=== PATIENT | female | born 1985 | race Caucasian/White ===

== ENCOUNTER 2016-09-04 23:23 | Emergency (ER) | payer BC ==
[2016-09-04 23:28] VITALS: RESP 18
[2016-09-04 23:56] LABS: Basophils # (A) 0.1 k/uL (0-0.2); Basophils % (A) 2 %; CH 31.9; CHCM 32.7; Eosinophils # (A) 0.1 k/uL (0-0.7); Eosinophils % (A) 2 %; HCT 42.3 % (34.0-46.0); HDW 2.11; HGB 13.7 gm/dL (11.4-16.0); Luc # (Auto) 0.11; Luc % (Auto) 1; Lymphocytes % (A) 36 %; MCH 31.7 pg (25.0-35.0); MCHC 32.4 g/dL (31.0-37.0); MCV 97.9 fL (80.0-100.0); Mean Platelet Volume 6.9; Monocytes # (A) 0.3 k/uL (0-1.0); Monocytes % (A) 4 %; Neutrophils # (A) 4.7 k/uL (1.3-7.7); Neutrophils % (A) 56 %; RBC 4.32 m/uL (3.80-5.40); RDW 13.3 % (11.5-15.5); WBC 8.3 k/uL (3.8-10.6)
[2016-09-05 00:09] LABS: Partial Thromboplastin Time 24.8 sec (22.0-30.0); Prothrombin Time 10.3 sec (9.0-12.0)
[2016-09-05 00:12] LABS: ALT 28 U/L (9-52); AST 22 U/L (14-36); Alkaline Phosphatase 51 U/L (38-126); Amylase 57 U/L (30-110); Anion Gap 12 mmol/L; Blood Urea Nitrogen 10 mg/dL (7-17); Calcium 9.4 mg/dL (8.4-10.2); Carbon Dioxide 25 mmol/L (22-30); Chloride 105 mmol/L (98-107); Glucose 92 mg/dL (74-99); Non-African American GFR(MDRD) >60 (>60 ml/min/1.73 sqM); Potassium 3.9 mmol/L (3.5-5.1); Sodium 142 mmol/L (137-145); Total Bilirubin 0.4 mg/dL (0.2-1.3); Total Protein 7.4 g/dL (6.3-8.2)
--- NOTE | 2016-09-05 00:16 | ED ---
Chest Pain HPI - General Chief Complaint: Chest Pain Stated Complaint: chest pain Time Seen by Provider: 09/04/16 23:35 Source: patient, RN notes reviewed Mode of arrival: ambulatory Limitations: no limitations - History of Present Illness Initial Comments: This is a 30-year-old female with a history of a cholecystectomy and appendectomy in the past also possible history of ulcers, no history of heart disease who states she had the onset yesterday of chest pain all she was driving home from a day with her children. He states the pain was sudden very severe crampy located across the bottom of her diaphragm and in the mid part of her chest. Lasted about 6 minutes then went away but she had nausea and sweats with it. She states today she felt tired she slept until 3 PM she denies any new chest pain she states she has some vague left upper quadrant discomfort. She denies any fevers chills cough phlegm production dysuria hematuria no history of DVT PE or no long extended trips. She had her gallbladder out she did have gallstones apparently. No sequela so far afterwards. She states the pain seemed to start about 2 hours after taking a Tylenol No. 3 for pain if she had yesterday. She's never had problems with Tylenol 3 before. No other complaints are voiced at this time she does not smoke except occasionally I did advise her to stop altogether no family history of early heart disease. MD Complaint: chest pain - Related Data Home Medications Medication Instructions Recorded Confirmed Acetaminophen-Codeine 300-30mg 1 tab PO Q6HR PRN 09/04/16 09/04/16 [Tylenol w/codeine #3] Dextroamphetamine/Amphetamine 1 tab PO DAILY 09/04/16 09/04/16 [Adderall] Allergies Allergy/AdvReac Type Severity Reaction Status Date / Time No Known Allergies Allergy Verified 09/04/16 23:28 Review of Systems ROS Statement: Those systems with pertinent positive or pertinent negative responses have been documented in the HPI. ROS Other: All systems not noted in ROS Statement are negative. EKG Findings - EKG Results: EKG: interpreted by DENNIS BOTELLOL, sinus rhythm, normal axis, normal QRS, normal ST/ T, no acute changes (EKG shows normal sinus rhythm of 76. Interval 166 QRS of 80 daily since QTC of 358/4 to this is a normal-appearing EKG.) Past Medical History Past Medical History: No Reported History History of Any Multi-Drug Resistant Organisms: None Reported Past Surgical History: Appendectomy, Cholecystectomy Past Psychological History: Anxiety Smoking Status: Current some day smoker Past Alcohol Use History: None Reported Past Drug Use History: None Reported General Exam - General Exam Comments Initial Comments: Is a well-developed well-nourished awake alert oriented 3 female Limitations: no limitations General appearance: alert, in no apparent distress Head exam: Present: atraumatic, normocephalic, normal inspection Eye exam: Present: normal appearance, PERRL, EOMI. Absent: scleral icterus, conjunctival injection, periorbital swelling ENT exam: Present: normal exam, mucous membranes moist Neck exam: Present: normal inspection. Absent: tenderness, meningismus, lymphadenopathy Respiratory exam: Present: normal lung sounds bilaterally. Absent: respiratory distress, wheezes, rales, rhonchi, stridor Cardiovascular Exam: Present: regular rate, normal rhythm, normal heart sounds. Absent: systolic murmur, diastolic murmur, rubs, gallop, clicks GI/Abdominal exam: Present: soft, normal bowel sounds. Absent: distended, tenderness, guarding, rebound, rigid Extremities exam: Present: normal inspection, full ROM, normal capillary refill. Absent: tenderness, pedal edema, joint swelling, calf tenderness Back exam: Present: normal inspection Neurological exam: Present: alert, oriented X3, CN II-XII intact Psychiatric exam: Present: normal affect, normal mood Skin exam: Present: warm, dry, intact, normal color. Absent: rash Course Vital Signs 09/04/16 23:25 Temperature 98.3 F Pulse Rate 75 Respiratory 18 Rate Blood Pressure 125/80 O2 Sat by Pulse 100 Oximetry Chest Pain MDM - MDM Review the x-ray shows no acute findings. I did discuss the findings with the patient all her lab work is within normal limits the presentation is consistent with some type of GI spasm likely esophageal or spastic colon. Patient will be discharge is follow-up with her doctor return when necessary did recommend a GI consultation if needed Disposition Clinical Impression: Spastic colon Disposition: HOME SELF-CARE Condition: Good Instructions: Irritable Bowel Syndrome (ED) Additional Instructions: Continue with her current medications Referrals: Tere Wilkinson MD [Primary Care Provider] - 1-2 days Alan Lemus MD [STAFF PHYSICIAN] - 1-2 days
[2016-09-05 00:35] LABS: Creatine Kinase 77 U/L (30-135)
[2016-09-05 00:48] LABS: Creatine Kinase MB 0.3 ng/mL (0.0-2.4); Troponin I <0.012 ng/mL (0.000-0.034)
--- NOTE | 2016-09-05 00:50 | XR ---
EXAM: XR Chest, 2 Views CLINICAL HISTORY: Reason: Chest Pain TECHNIQUE: Frontal and lateral views of the chest. COMPARISON: No relevant prior studies available. FINDINGS: Lungs: Unremarkable. No consolidation. Pleural space: Unremarkable. No pneumothorax. Heart: Unremarkable. No cardiomegaly. Mediastinum: Unremarkable. Bones/joints: No acute abnormality. IMPRESSION: No acute intrathoracic abnormality is seen.
[2016-09-05 01:15] VITALS: BP 110/75; PULSE 75; TEMP 98.8
== END 2016-09-05 01:15 | disposition home or self-care (01) ==
LOC: EC 23:23
DX: K58.9 Irritable bowel syndrome, unspecified (principal); R07.9 Chest pain, unspecified; F41.9 Anxiety disorder, unspecified; F17.200 Nicotine dependence, unspecified, uncomplicated; Z90.49 Acquired absence of other specified parts of digestive tract; Z98.890 Other specified postprocedural states; Z79.899 Other long term (current) drug therapy
CPT/HCPCS: 36415; 71020; 80053; 81025; 82150; 82550; 82553; 83690; 83735; 83880; 84484; 85025; 85379; 85610; 85730; 93005; 99285

== ENCOUNTER → 2018-07-04 | Outpatient (CLI) | payer MEDICAID ==
--- NOTE | 2018-07-04 17:26 | CT ---
EXAMINATION TYPE: CT abdomen pelvis w con DATE OF EXAM: 07/04/2018 COMPARISON: None INDICATION: Epigastric pain worsening x1 year DLP: 1098 mGycm, Automated exposure control for dose reduction was used. CONTRAST: 100 mL of Isovue 300. Study performed with Oral Contrast TECHNIQUE: Axial images were obtained from above the diaphragm to the pubic rami in the axial plane a t 5 mm thick sections. Reconstructed images are reviewed on the computer in the coronal plane. FINDINGS: Limited CT sections are obtained the lung bases. The lung bases are clear. CT ABDOMEN: Liver: Normal Spleen: Normal Pancreas: Normal Adrenal glands: The adrenal glands are normal. Gallbladder: Normal Kidneys: No masses are evident. No hydronephrosis is present. No cysts are present. Delayed images were obtained through the kidneys, which remain unremarkable. Aorta: Normal Inferior vena cava: Normal. CT PELVIS: Loops of bowel within the abdomen and pelvis are normal. There are loops of bowel lacking oral co ntrast are limited distention limiting their evaluation. Some fecal debris is within the transverse c olon. Appendix: Not identified. No suspicious tubular structures or inflammatory changes are evident. Urinary bladder: Normal. Genitourinary structures: Uterus appears unremarkable. Adnexal regions are within normal limits Osseous structures: No suspicious lytic or sclerotic lesions. IMPRESSIONS: 1. No suspicious abnormality to account for epigastric pain.
== END | disposition home or self-care (01) ==
LOC: RADCTMAIN 13:13
PROVIDERS: ATTEND Family Medicine
DX: R10.84 Generalized abdominal pain (principal)
CPT/HCPCS: 74177; Q9967

== ENCOUNTER 2018-07-20 08:52 | Day surgery (SDC) | payer MEDICAID ==
[2018-07-18 12:12] VITALS: BMI 28.3
[~2018-07-20 08:52] MED LIST: DEXAMETHASONE SOD PHOSPHATE 10 MG/ML 1 ML VIAL IV ONE; LACTATED RINGERS 1,000 ML IV SCH; ONDANSETRON 4 MG/2 ML VIAL IVP ONE
[2018-07-20 09:39] VITALS: RESP 16; TEMP 98.4
[2018-07-20] MEDS ORDERED: LIDOCAINE 1% 20 ML VIAL (10MG/ML) FOR IV START INTRADERMA ONE (09:47)
[2018-07-20] MEDS ORDERED: fentaNYL (PF) 50 MCG/ML 2 ML AMP ONE (10:11)
[2018-07-20] MEDS ORDERED: MIDAZOLAM 2 MG/2 ML VIAL ONE (10:11)
[2018-07-20] MEDS ORDERED: PROPOFOL 10 MG/ML 20 ML VIAL IV ONE (10:11)
--- NOTE | 2018-07-20 10:24 | P.PCN ---
Date of Procedure: 07/20/18 Procedure(s) Performed: BRIEF HISTORY: Patient is a 32-year-old, pleasant, white female, scheduled for an upper endoscopy as part of value should of intermittent episodes of severe epigastric pain for the last 2 years duration. She was diagnosed with gallstones and underwent gallbladder surgery 2 years ago despite which remains symptomatic. Initially used to have these episodes once every 6 months but for the last week she had 3 episodes each lasting between 30-40 minutes. She has been on Carafate and Protonix with no help. PROCEDURE PERFORMED: Esophagogastroduodenoscopy with biopsy. PREOPERATIVE DIAGNOSIS: Intermittent episodes of severe epigastric pain. IV sedation per anesthesia. PROCEDURE: After informed consent was obtained, the patient was brought into the endoscopy unit. IV sedation was administered by Anesthesia under continuous monitoring. Initially the Olympus GIF-140 video endoscope was inserted into the mouth. Esophagus intubated without any difficulty. It was gradually advanced into the stomach and duodenum and carefully examined. The bulb and the second part of the duodenum appeared normal. The scope at this time was withdrawn to the stomach, adequately insufflated with air, and upon careful examination, mucosa of the antrum, had mild gastritis and biopsies were done from this area. The body, cardia and the fundus appeared normal. The scope was then withdrawn into the esophagus. The GE junction was located at 39 cm from the incisors. The esophagus appeared normal. Biopsies were done from the distal esophagus. There were no erosions or ulcerations seen and the patient tolerated the procedure well. IMPRESSION: 1. Antral gastritis. 2. No evidence of esophagitis or peptic ulcer. RECOMMENDATIONS: The findings of this examination were discussed with the patient as well as a family. She was advised to follow with the biopsy results. She will continue with her current medications. She remains symptomatic consider doing an MRCP to rule out CBD stones. She was advised to follow with Dr. Wilkinson as scheduled.
[2018-07-20 10:42] VITALS: BP 103/67; PULSE 69
== END 2018-07-20 11:01 | disposition home or self-care (01) ==
LOC: ORWHC2ENDO 08:52
PROVIDERS: ATTEND Internal Medicine Gastroenterology
DX: K29.50 Unspecified chronic gastritis without bleeding (principal); G43.909 Migraine, unspecified, not intractable, without status migrainosus; F41.9 Anxiety disorder, unspecified; Z79.3 Long term (current) use of hormonal contraceptives; Z79.899 Other long term (current) drug therapy; Z79.891 Long term (current) use of opiate analgesic; Z88.5 Allergy status to narcotic agent; Z91.09 Other allergy status, other than to drugs and biological substances
CPT/HCPCS: 81025; 88305; 43239; J2250; J3010; J2704

== ENCOUNTER → 2018-08-06 | Outpatient (CLI) | payer MEDICAID ==
--- NOTE | 2018-08-06 08:12 | MR ---
EXAMINATION TYPE: MR MRCP DATE OF EXAM: 08/06/2018 COMPARISON: CT abdomen and pelvis July 04, 2018. HISTORY: epigastric pain per order. History of appendectomy and cholecystectomy per patient. Mid abdo lisa pain worsening over last year per patient. Standard multiplanar, multisequence MRI departmental protocol Multiplanar, multisequence images of the abdomen focusing some biliary system were acquired. Thin and thick slice MRCP imaging is performed on MRI scanner. FINDINGS: Liver/gallbladder/pancreas/biliary system: Gallbladder is not visualized consistent with history of c holecystectomy. Liver is overall normal in size without intrahepatic mass. Pancreas is normal in size . Pancreatic duct is felt within normal limits. There is no suspicious intrahepatic or extra hepatic biliary dilatation. Common bile duct measures up to 6 mm which is within normal limits after cholecys tectomy but cholecystectomy. No round calculi are evident. Other: Visualized lung bases are clear. The spleen and both adrenal glands are normal in size. There is no concerning renal mass or hydronephrosis. There is no suspicious bowel dilatation. There is no a bdominal ascites. There is no greater than 1 cm abdominal adenopathy. Visualized osseous structures a re intact. IMPRESSION: No suspicious biliary or pancreatic ductal dilatation. No significant finding is seen to account for patient's symptoms of increasing epigastric pain.
== END | disposition home or self-care (01) ==
LOC: RADMRIMAIN 07:11
PROVIDERS: ATTEND Internal Medicine Gastroenterology
DX: R10.13 Epigastric pain (principal)
CPT/HCPCS: 74181

== ENCOUNTER → 2020-06-05 | Outpatient (CLI) | payer MEDICAID ==
--- NOTE | 2020-06-05 16:45 | US ---
EXAMINATION TYPE: US thyroid st tissue head/neck DATE OF EXAM: 06/05/2020 COMPARISON: NONE CLINICAL HISTORY: E04.9 goiter. GLAND SIZE: Right Lobe: 5.4 x 1.3 x 1.6 cm Overall Parenchyma: homogenous Left Lobe: 5.4 x 1.2 x 1.6 cm Overall Parenchyma: homogeneous Isthmus Thickness: 0.4 cm NODULES RIGHT: # of nodules measured on right: 0 LEFT: # of nodules measured on left: 0 ISTHMUS: # of nodules measured in the isthmus: 0 Bilateral neck scanned, no evidence of lymphadenopathy. Thyroid echotexture is homogenous and symmetric IMPRESSION: There is no thyroid nodule identified, normal thyroid echotexture, thyroid size as described
== END ==
LOC: RADUSWWP 16:01
PROVIDERS: ATTEND Family Medicine
DX: E04.9 Nontoxic goiter, unspecified (principal)
CPT/HCPCS: 76536

== ENCOUNTER 2020-12-29 08:46 | Emergency (ER) | payer MEDICAID ==
[2020-12-29 08:51] VITALS: TEMP 98.2
[2020-12-29] MEDS ORDERED: ONDANSETRON 4 MG/2 ML VIAL IVP STA (09:15)
[2020-12-29] MEDS ORDERED: HYDROmorphone 0.5 MG/0.5 ML SYRINGE IVP STA ×2 (09:15→11:03)
[2020-12-29] MEDS ORDERED: SODIUM CHLORIDE 0.9% 1,000 ML IV STA (09:15)
--- NOTE | 2020-12-29 09:19 | ED ---
Back Pain HPI - General Chief Complaint: Back Pain/Injury Stated Complaint: back pain Time Seen by Provider: 12/29/20 08:59 Source: patient, RN notes reviewed Limitations: no limitations - History of Present Illness Initial Comments: Patient is a 35-year-old female presenting with perineum pain that has progressed since . Patient reports pain has increased to 10/10 pain, worsening with sitting, with no acute trauma or injury to the area. No point tenderness is present on palpation of back. Patient denies any nausea and vomiting, no constipation or pain with urination. Patient has present medical history of ureteral stent sling. - Related Data Home Medications Medication Instructions Recorded Confirmed Clindamycin 1% Pledget 1 applic TOPICAL BID 12/29/20 12/29/20 Dextroamphetamine/Amphetamine 20 mg PO BID 12/29/20 12/29/20 [Adderall] Gabapentin [Neurontin] 100 mg PO BID PRN 12/29/20 12/29/20 Hydrocortisone Cream 1 applic TOPICAL BID PRN 12/29/20 12/29/20 [Hydrocortisone 2.5% Cream] Spironolactone 50 mg PO BID 12/29/20 12/29/20 Previous Rx's Medication Instructions Recorded HYDROcodone/APAP 5-325MG [Thornton 5] 1 each PO Q6HR PRN #12 tab 12/29/20 Ketorolac [Toradol] 10 mg PO Q8HR #15 tab 12/29/20 Allergies Allergy/AdvReac Type Severity Reaction Status Date / Time adhesive Allergy Rash/Hives Verified 12/29/20 09:53 codeine AdvReac LOW HEART Verified 12/29/20 09:53 [From Tylenol-Codeine #3] RATE AND RESTLESSNESS tramadol AdvReac LOW HEART Verified 12/29/20 09:53 RATE AND RESTLESSNESS Review of Systems ROS Statement: Those systems with pertinent positive or pertinent negative responses have been documented in the HPI. ROS Other: All systems not noted in ROS Statement are negative. Past Medical History Past Medical History: Neurologic Disorder Additional Past Medical History / Comment(s): HX MIGRAINES. POSSIBLE STOMACH ULCER History of Any Multi-Drug Resistant Organisms: None Reported Past Surgical History: Appendectomy, Cholecystectomy Past Anesthesia/Blood Transfusion Reactions: No Reported Reaction Past Psychological History: Anxiety Smoking Status: Never smoker Past Alcohol Use History: Rare Past Drug Use History: None Reported - Past Family History Mother Family Medical History: No Reported History General Exam Limitations: no limitations General appearance: alert, in distress Head exam: Present: atraumatic, normocephalic, normal inspection Eye exam: Present: normal appearance, PERRL, EOMI. Absent: scleral icterus, conjunctival injection, periorbital swelling ENT exam: Present: normal exam, mucous membranes moist Neck exam: Present: normal inspection. Absent: tenderness, meningismus, lymphadenopathy Respiratory exam: Present: normal lung sounds bilaterally. Absent: respiratory distress, wheezes, rales, rhonchi, stridor Cardiovascular Exam: Present: regular rate, normal rhythm, normal heart sounds. Absent: systolic murmur, diastolic murmur, rubs, gallop, clicks GI/Abdominal exam: Present: soft, normal bowel sounds. Absent: distended, tenderness, guarding, rebound, rigid Rectal exam: Present: deferred, other (Patient placed on hallway) External exam: Present: other Speculum exam: Present: other By manual exam: Present: other Extremities exam: Present: normal inspection, full ROM, normal capillary refill. Absent: tenderness, pedal edema, joint swelling, calf tenderness Back exam: Present: normal inspection Neurological exam: Present: alert, oriented X3, CN II-XII intact Skin exam: Present: warm, dry, intact, normal color. Absent: rash Course Vital Signs 12/29/20 12/29/20 08:49 11:36 Temperature 98.2 F Pulse Rate 74 80 Respiratory 20 18 Rate Blood Pressure 121/80 102/70 O2 Sat by Pulse 98 97 Oximetry Medical Decision Making - Medical Decision Making 35-year-old presented for lower abdominal pain, perineal pain she is found to have a hemorrhagic and dermoid cyst. She pain is improved at this time she did have a pelvic exam performed by [facility] which was unremarkable. Patient will be discharged in stable condition return parameters discussed. - Lab Data Result diagrams: 12/29/20 09:31 12/29/20 09:31 Lab Results 12/29/20 12/29/20 12/29/20 Range/Units 09:31 09:31 09:31 WBC 9.5 (3.8-10.6) k/uL RBC 4.18 (3.80-5.40) m/uL Hgb 13.5 (11.4-16.0) gm/dL Hct 40.8 (34.0-46.0) % MCV 97.5 (80.0-100.0) fL MCH 32.2 (25.0-35.0) pg MCHC 33.0 (31.0-37.0) g/dL RDW 12.4 (11.5-15.5) % Plt Count 234 (150-450) k/uL MPV 7.7 Neutrophils % 64 % Lymphocytes % 28 % Monocytes % 4 % Eosinophils % 1 % Basophils % 1 % Neutrophils # 6.1 (1.3-7.7) k/uL Lymphocytes # 2.7 (1.0-4.8) k/uL Monocytes # 0.4 (0-1.0) k/uL Eosinophils # 0.1 (0-0.7) k/uL Basophils # 0.1 (0-0.2) k/uL Sodium (137-145) mmol/L Potassium (3.5-5.1) mmol/L Chloride (98-107) mmol/L Carbon Dioxide (22-30) mmol/L Anion Gap mmol/L BUN (7-17) mg/dL Creatinine (0.52-1.04) mg/dL Est GFR (CKD-EPI)AfAm (>60 ml/min/1.73 sqM) Est GFR (CKD-EPI)NonAf (>60 ml/min/1.73 sqM) Glucose (74-99) mg/dL Plasma Lactic Acid Speedy (0.7-2.0) mmol/L Calcium (8.4-10.2) mg/dL Total Bilirubin (0.2-1.3) mg/dL AST (14-36) U/L ALT (4-34) U/L Alkaline Phosphatase (38-126) U/L Total Protein (6.3-8.2) g/dL Albumin (3.5-5.0) g/dL Lipase (23-300) U/L Urine Color Light Yellow Urine Appearance Cloudy H (Clear) Urine pH 7.0 (5.0-8.0) Ur Specific [place] 1.006 (1.001-1.035) Urine Protein Negative (Negative) Urine Glucose (UA) Negative (Negative) Urine Ketones Negative (Negative) Urine Blood Negative (Negative) Urine Nitrite Negative (Negative) Urine Bilirubin Negative (Negative) Urine Urobilinogen <2.0 (<2.0) mg/dL Ur Leukocyte Esterase Small H (Negative) Urine RBC 1 (0-5) /hpf Urine WBC 1 (0-5) /hpf Ur Squamous Epith Cells 4 (0-4) /hpf Urine Bacteria Rare H (None) /hpf Urine HCG, Qual Not Detected (Not Detectd) 12/29/20 12/29/20 Range/Units 09:31 09:31 WBC (3.8-10.6) k/uL RBC (3.80-5.40) m/uL Hgb (11.4-16.0) gm/dL Hct (34.0-46.0) % MCV (80.0-100.0) fL MCH (25.0-35.0) pg MCHC (31.0-37.0) g/dL RDW (11.5-15.5) % Plt Count (150-450) k/uL MPV Neutrophils % % Lymphocytes % % Monocytes % % Eosinophils % % Basophils % % Neutrophils # (1.3-7.7) k/uL Lymphocytes # (1.0-4.8) k/uL Monocytes # (0-1.0) k/uL Eosinophils # (0-0.7) k/uL Basophils # (0-0.2) k/uL Sodium 138 (137-145) mmol/L Potassium 4.5 (3.5-5.1) mmol/L Chloride 106 (98-107) mmol/L Carbon Dioxide 24 (22-30) mmol/L Anion Gap 8 mmol/L BUN 11 (7-17) mg/dL Creatinine 0.49 L (0.52-1.04) mg/dL Est GFR (CKD-EPI)AfAm >90 (>60 ml/min/1.73 sqM) Est GFR (CKD-EPI)NonAf >90 (>60 ml/min/1.73 sqM) Glucose 93 (74-99) mg/dL Plasma Lactic Acid Speedy 0.9 (0.7-2.0) mmol/L Calcium 9.2 (8.4-10.2) mg/dL Total Bilirubin 0.4 (0.2-1.3) mg/dL AST 24 (14-36) U/L ALT 17 (4-34) U/L Alkaline Phosphatase 65 (38-126) U/L Total Protein 7.3 (6.3-8.2) g/dL Albumin 4.0 (3.5-5.0) g/dL Lipase 46 (23-300) U/L Urine Color Urine Appearance (Clear) Urine pH (5.0-8.0) Ur Specific [place] (1.001-1.035) Urine Protein (Negative) Urine Glucose (UA) (Negative) Urine Ketones (Negative) Urine Blood (Negative) Urine Nitrite (Negative) Urine Bilirubin (Negative) Urine Urobilinogen (<2.0) mg/dL Ur Leukocyte Esterase (Negative) Urine RBC (0-5) /hpf Urine WBC (0-5) /hpf Ur Squamous Epith Cells (0-4) /hpf Urine Bacteria (None) /hpf Urine HCG, Qual (Not Detectd) Disposition Clinical Impression: Hemorrhagic ovarian cyst, Dermoid cyst of ovary Disposition: HOME SELF-CARE Condition: Stable Instructions (If sedation given, give patient instructions): Ovarian Cyst (ED) Additional Instructions: Follow-up as scheduled NUCLEAR PHYSICIST appointment.Please return to the Emergency Department if symptoms worsen or any other concerns. Prescriptions: HYDROcodone/APAP 5-325MG [Thornton 5] 1 each PO Q6HR PRN #12 tab PRN Reason: Pain Ketorolac [Toradol] 10 mg PO Q8HR #15 tab Is patient prescribed a controlled substance at d/c from ED?: Yes When asked, does pt state using other controlled substances?: No If prescribed controlled substance>3 days was MAPS reviewed?: Prescribed <3 Days If opioid is for acute pain is fill amount 7 days or less?: Yes If Rx opioid, was Start Talking consent form obtained?: Yes Referrals: Tere Wilkinson MD [Primary Care Provider] - 1-2 days Time of Disposition: 13:31
[2020-12-29 09:48] LABS: Basophils # (A) 0.1 k/uL (0-0.2); Basophils % (A) 1 %; Eosinophils # (A) 0.1 k/uL (0-0.7); Eosinophils % (A) 1 %; HCT 40.8 % (34.0-46.0); HGB 13.5 gm/dL (11.4-16.0); Lymphocytes # (A) 2.7 k/uL (1.0-4.8); Lymphocytes % (A) 28 %; MCH 32.2 pg (25.0-35.0); MCV 97.5 fL (80.0-100.0); Mean Platelet Volume 7.7; Monocytes # (A) 0.4 k/uL (0-1.0); Monocytes % (A) 4 %; Neutrophils # (A) 6.1 k/uL (1.3-7.7); Neutrophils % (A) 64 %; Platelet Count 234 k/uL (150-450); RBC 4.18 m/uL (3.80-5.40); RDW 12.4 % (11.5-15.5); WBC 9.5 k/uL (3.8-10.6)
[2020-12-29 09:58] LABS: Appearance,Urine Cloudy (Clear); Bacteria,Urine Rare /hpf; Bilirubin,Urine Negative (Negative); Blood,Urine Negative (Negative); Color,Urine Light Yellow; Glucose,Urine (UA) Negative (Negative); Ketones,Urine Negative (Negative); Leukocyte Esterase,Urine Small (Negative); Nitrite,Urine Negative (Negative); Protein,Urine Negative (Negative); RBC,Urine 1 /hpf (0-5); Specific Gravity,Urine 1.006 (1.001-1.035); Squamous Epithelial Cell,Urine 4 /hpf (0-4); Urobilinogen,Urine <2.0 mg/dL (<2.0); WBC,Urine 1 /hpf (0-5)
[2020-12-29 10:03] LABS: ALT 17 U/L (4-34); AST 24 U/L (14-36); African American GFR (CKD) >90 (>60 ml/min/1.73 sqM); Alkaline Phosphatase 65 U/L (38-126); Anion Gap 8 mmol/L; Blood Urea Nitrogen 11 mg/dL (7-17); Calcium 9.2 mg/dL (8.4-10.2); Carbon Dioxide 24 mmol/L (22-30); Chloride 106 mmol/L (98-107); Glucose 93 mg/dL (74-99); Lipase 46 U/L (23-300); Non-African American GFR(CKD) >90 (>60 ml/min/1.73 sqM); Potassium 4.5 mmol/L (3.5-5.1); Sodium 138 mmol/L (137-145); Total Bilirubin 0.4 mg/dL (0.2-1.3); Total Protein 7.3 g/dL (6.3-8.2)
--- NOTE | 2020-12-29 10:45 | CT ---
EXAMINATION TYPE: CT pelvis w con DATE OF EXAM: 12/29/2020 COMPARISON: 07/04/2018 HISTORY: low back, pelvic, perineum pain CT DLP: 798.1 mGycm CONTRAST: CT scan of the pelvis is performed without Oral Contrast and with IV Contrast, patient injected with 100 mL of Isovue 300. FINDINGS: KIDNEYS/BLADDER: No hydronephrosis. No nephrolithiasis. No distinct renal mass. Urinary bladder g rossly unremarkable. BOWEL: Normal appendix. Normal bowel caliber. No inflammation. GENITAL ORGANS: There is radiopaque density in the region of the uterine cervix which was not presen t previously by 9 mm uncertain etiology and could reflect foreign or unusual calcification. Left ova colette cyst measuring 4.2 cm. Small amount of free fluid noted within the cyst cul-de-sac. No definite uterine or right adnexal mass. LYMPH NODES: No greater than 1cm abdominal or pelvic lymph nodes are appreciated. AORTA: No significant abnormality. OSSEOUS STRUCTURES: No significant abnormality is seen. OTHER: No significant additional abnormality is seen. IMPRESSION: 1. Unusual appearing radiopaque density with central lucency in the region of the uterine cervix is o f uncertain etiology. Consideration is that of foreign body as the appearance is not typical calcific ation. This was also not present previously. 2. Left ovarian cystic lesion. Consider ultrasound correlation.
[2020-12-29] MEDS ORDERED: KETOROLAC 15 MG/ML 1 ML VIAL IVP STA (11:03)
[2020-12-29 11:39] VITALS: RESP 18
--- NOTE | 2020-12-29 13:09 | US ---
EXAMINATION TYPE: US transvaginal plus Dopplers DATE OF EXAM: 12/29/2020 COMPARISON: CT today CLINICAL HISTORY: 35-year-old female with pain lower pelvis x 5 days. TECHNIQUE: Transabdominal sonographic images of the pelvis were acquired. Transvaginal sonographic i mages were medically necessary to better assess the anatomy. Color Doppler and spectral waveform anal ysis of the ovarian arteries and veins. Date of LMP: 11/30/20 FINDINGS: EXAM MEASUREMENTS: Uterus: 9.5 x 5.6 x 4.7 cm Endometrial Stripe: 0.7 cm Right Ovary: 3.1 x 2.2 x 1.5 cm for a volume of 5.4 mL Left Ovary: 4.8 x 2.6 x 2.4 cm for a volume of 15.5 mL 1. Uterus: Anteverted. Cervical nabothian cyst = 5mm 2. Endometrium: wnl 3. Right Ovary: with multiple follicles 4. Left Ovary: Asymmetrically larger with multiple follicles, and hypoechoic oval lesion with interna l reticulations measuring 2.9 x 2.7 x 1.5 cm Spectral, color and waveform doppler imaging shows good arterial and venous flow within the ovaries ; there is no evidence for ovarian torsion. 5. Bilateral Adnexa: wnl 6. Posterior cul-de-sac: Dental Detail Representative notes: free fluid with internal echos and a complex mass = 2.8 x 2.4 x 2.0 cm. Mass has calcified areas with shadowing. Both ovaries are low, near cul de sac. ? Ma ss coming from ovary vs separate. IMPRESSION: 1. No sonographic evidence for ovarian torsion. 2. There is a 2.9 cm hypoechoic lesion within the left ovary, suspected hemorrhagic cyst. 6-8 week fo llow-up ultrasound to ensure involution and exclude a mass of the ovary. 3. Additional 2.8 x 2.4 x 2.0 cm indeterminate heterogeneous area with associated calcifications with in the cul-de-sac adjacent to the left ovary. Mild adjacent free fluid is also present. The exact jack ology is unclear but this appears to correlate to the CT finding. Some possibilities include ovarian dermoid or ectopic . A foreign body in this location would be unusual. Clinically correlate as we note some surgical material in the right lower quadrant on the patient's CT.
[2020-12-29 13:43] VITALS: BP 98/73; PULSE 67
[2020-12-30 15:08] LABS: C. trachomatis,PCR Negative (Neg,Equiv); Chlamydia trachomatis Source Cervix; N. gonorrhoeae,PCR Negative (Neg,Equiv); Neisseria Source Cervix
== END 2020-12-29 13:44 | disposition home or self-care (01) ==
LOC: EC 08:46
DX: D27.9 Benign neoplasm of unspecified ovary (principal); F41.9 Anxiety disorder, unspecified; Z79.899 Other long term (current) drug therapy
CPT/HCPCS: 36415; 80053; 83605; 83690; 85025; 81001; 81025; 87491; 87591; 87070; 93975; 76830; 72193; 99284; 96374; 96375 ×2; 96376; 96361; J2405; J1885; J1170; Q9967

== ENCOUNTER 2021-01-01 18:09 | Emergency (ER) | payer MEDICAID ==
[2021-01-01] MEDS ORDERED: SODIUM CHLORIDE 0.9% 1,000 ML IV ONE (19:38)
[2021-01-01] MEDS ORDERED: HYDROmorphone 1 MG/ML 1 ML SYRINGE IVP STA (19:38)
[2021-01-01] MEDS ORDERED: ONDANSETRON 4 MG/2 ML VIAL IVP STA (19:39)
[2021-01-01] MEDS ORDERED: KETOROLAC 15 MG/ML 1 ML VIAL IVP STA (20:29)
[2021-01-01 21:03] LABS: Appearance,Urine Clear (Clear); Bilirubin,Urine Negative (Negative); Blood,Urine Negative (Negative); Color,Urine Light Yellow; Glucose,Urine (UA) Negative (Negative); Ketones,Urine Negative (Negative); Leukocyte Esterase,Urine Negative (Negative); Nitrite,Urine Negative (Negative); Protein,Urine Negative (Negative); Specific Gravity,Urine 1.004 (1.001-1.035); Urobilinogen,Urine <2.0 mg/dL (<2.0)
[2021-01-01] MEDS ORDERED: METOCLOPRAMIDE 5 MG/ML 2 ML VIAL IVP STA (21:50)
[2021-01-01 22:13] LABS: Basophils # (A) 0.1 k/uL (0-0.2); Basophils % (A) 1 %; Eosinophils # (A) 0.1 k/uL (0-0.7); Eosinophils % (A) 2 %; HCT 34.5 % (34.0-46.0); Lymphocytes # (A) 2.8 k/uL (1.0-4.8); Lymphocytes % (A) 32 %; MCH 33.2 pg (25.0-35.0); MCHC 34.8 g/dL (31.0-37.0); MCV 95.4 fL (80.0-100.0); Mean Platelet Volume 7.3; Monocytes # (A) 0.2 k/uL (0-1.0); Monocytes % (A) 3 %; Neutrophils # (A) 5.5 k/uL (1.3-7.7); Neutrophils % (A) 62 %; Platelet Count 236 k/uL (150-450); RBC 3.61 m/uL (3.80-5.40); RDW 12.9 % (11.5-15.5); WBC 8.8 k/uL (3.8-10.6)
--- NOTE | 2021-01-01 22:18 | ED ---
General Adult HPI - General Chief complaint: Back Pain/Injury Stated complaint: revisit - abd pain Time Seen by Provider: 01/01/21 18:39 Source: patient Mode of arrival: wheelchair Limitations: no limitations - History of Present Illness Initial comments: 35-year-old female presents to the emergency Department with complaints of intense right flank and low back pain that radiates into the perineum and right buttock. Reports pain began 8 days ago and has continued to worsen. States she was evaluated 3 days ago for this same complaint and has had no improvement in symptoms. Describes pain as constant with no aggravating or alleviating factors. Patient reports that in addition to her pain, she also has persistent nausea and has had occasional episodes of vomiting. Reports her symptoms are all gynecological in nature. Patient states she spoke with her primary care provider on-call today is that she be seen in the emergency department for r eevaluation and admission for gynecological care. Patient denies fever, chills, headache, chest pain, difficulty breathing, and bowel and bladder symptoms. - Related Data Home Medications Medication Instructions Recorded Confirmed Dextroamphetamine/Amphetamine 20 mg PO BID 12/29/20 01/01/21 [Adderall] Spironolactone 50 mg PO BID 12/29/20 01/01/21 Doxycycline Hyclate 100 mg PO BID 01/01/21 01/01/21 HYDROcodone/APAP 5-325MG [[place] 5] 1 tab PO Q6HR PRN 01/01/21 01/01/21 metroNIDAZOLE [Flagyl] 500 mg PO Q12H 01/01/21 01/01/21 Previous Rx's Medication Instructions Recorded Ketorolac [Toradol] 10 mg PO Q8HR #15 tab 12/29/20 Allergies Allergy/AdvReac Type Severity Reaction Status Date / Time adhesive Allergy Rash/Hives Verified 01/01/21 19:44 codeine AdvReac LOW HEART Verified 01/01/21 19:44 [From Tylenol-Codeine #3] RATE AND RESTLESSNESS tramadol AdvReac LOW HEART Verified 01/01/21 19:44 RATE AND RESTLESSNESS Review of Systems ROS Statement: Those systems with pertinent positive or pertinent negative responses have been documented in the HPI. ROS Other: All systems not noted in ROS Statement are negative. Past Medical History Past Medical History: Neurologic Disorder Additional Past Medical History / Comment(s): HX MIGRAINES. POSSIBLE STOMACH ULCER History of Any Multi-Drug Resistant Organisms: None Reported Past Surgical History: Appendectomy, Cholecystectomy Past Anesthesia/Blood Transfusion Reactions: No Reported Reaction Past Psychological History: Anxiety Smoking Status: Never smoker Past Alcohol Use History: Rare Past Drug Use History: None Reported - Past Family History Mother Family Medical History: No Reported History General Exam Limitations: no limitations General appearance: alert, other (Patient is restless and is unable to find a position of comfort. ) ENT exam: Present: normal exam, normal oropharynx, mucous membranes moist Respiratory exam: Present: normal lung sounds bilaterally. Absent: respiratory distress, wheezes, rales, rhonchi, stridor Cardiovascular Exam: Present: regular rate, normal rhythm, normal heart sounds. Absent: systolic murmur, diastolic murmur, rubs, gallop, clicks GI/Abdominal exam: Present: soft, tenderness (Suprapubic tenderness upon palpation), normal bowel sounds. Absent: distended, guarding, rebound Speculum exam: Present: vaginal discharge (Moderate amount of thin yellowish vaginal discharge which patient states is normal for her at this point in her cycle but is increased from previous pelvic exam). Absent: erythema, vaginal bleeding By manual exam: Present: cervical motion tenderness (Significant discomfort), adnexal tenderness (Right sided adnexal tenderness). Absent: adnexal mass Back exam: Absent: CVA tenderness (R), CVA tenderness (L) Neurological exam: Present: alert, oriented X3, CN II-XII intact Psychiatric exam: Present: normal mood Skin exam: Present: warm, dry, intact, normal color. Absent: rash Course Vital Signs 01/01/21 01/01/21 01/01/21 18:22 21:25 23:25 Temperature 98.7 F Pulse Rate 60 67 64 Respiratory 18 20 20 Rate Blood Pressure 121/81 130/84 108/67 O2 Sat by Pulse 98 96 99 Oximetry 01/02/21 00:30 Temperature 98.2 F Pulse Rate 84 Respiratory 20 Rate Blood Pressure 130/84 O2 Sat by Pulse 96 Oximetry - Reevaluation(s) Reevaluation #1: 01/01/[address] Vasquez regarding this patient's intractable pain, previous workup, and physical exam findings. 01/01/21 23:[address]Hurtebise regarding patient's physical exam findings, previous workup, and current lab results. She advises a PID treatment plan and is willing to see the patient in the office on Monday. 01/01/21 23:55 Clarified with patient that she does have prescriptions for Doxycycline and Flagyl which were called in for her by another provider today. States she will begin taking these medications tomorrow. Medical Decision Making - Medical Decision Making 35-year-old female with a history of known ovarian cysts is evaluated for ongoing pelvic pain and nausea. Pertinent physical exam findings include increased vaginal discharge that is thin and yellow, significant cervical motion tenderness, suprapubic pain with palpation. No significant findings in today's lab work. Previous pelvic cultures and STI testing from Monday's visit were negative. Pain and nausea were treated, patient reports improvement of symptoms. This patient's case was discussed with my attending, Dr. Vasquez, who also reviewed imaging from previous workup. I spoke with , from [facility], regarding patient's care and exam findings. She suspects symptoms are due to pelvic inflammatory disease and is willing to see the patient in the office on Monday. Patient was given a dose of Rocephin while present in the emergency department and has already been prescribed doxycycline and Flagyl by another provider earlier today. Discussed importance of pelvic rest. Patient encouraged to take medications as prescribed and to follow-up at [facility]; started to call the office Monday. Return parameters were discussed in detail. Patient verbalizes understanding and agrees with this plan. - Lab Data Result diagrams: 01/01/21 22:00 01/01/21 22:00 Lab Results 01/01/21 01/01/21 01/01/21 Range/Units 19:50 22:00 22:00 WBC 8.8 (3.8-10.6) k/uL RBC 3.61 L (3.80-5.40) m/uL Hgb 12.0 (11.4-16.0) gm/dL Hct 34.5 (34.0-46.0) % MCV 95.4 (80.0-100.0) fL MCH 33.2 (25.0-35.0) pg MCHC 34.8 (31.0-37.0) g/dL RDW 12.9 (11.5-15.5) % Plt Count 236 (150-450) k/uL MPV 7.3 Neutrophils % 62 % Lymphocytes % 32 % Monocytes % 3 % Eosinophils % 2 % Basophils % 1 % Neutrophils # 5.5 (1.3-7.7) k/uL Lymphocytes # 2.8 (1.0-4.8) k/uL Monocytes # 0.2 (0-1.0) k/uL Eosinophils # 0.1 (0-0.7) k/uL Basophils # 0.1 (0-0.2) k/uL Sodium 136 L (137-145) mmol/L Potassium 4.1 (3.5-5.1) mmol/L Chloride 107 (98-107) mmol/L Carbon Dioxide 25 (22-30) mmol/L Anion Gap 4 mmol/L BUN 13 (7-17) mg/dL Creatinine 0.47 L (0.52-1.04) mg/dL Est GFR (CKD-EPI)AfAm >90 (>60 ml/min/1.73 sqM) Est GFR (CKD-EPI)NonAf >90 (>60 ml/min/1.73 sqM) Glucose 88 (74-99) mg/dL Calcium 8.4 (8.4-10.2) mg/dL Total Bilirubin 0.3 (0.2-1.3) mg/dL AST 23 (14-36) U/L ALT 14 (4-34) U/L Alkaline Phosphatase 44 (38-126) U/L Total Protein 6.1 L (6.3-8.2) g/dL Albumin 3.3 L (3.5-5.0) g/dL Urine Color Light Yellow Urine Appearance Clear (Clear) Urine pH 7.0 (5.0-8.0) Ur Specific [place] 1.004 (1.001-1.035) Urine Protein Negative (Negative) Urine Glucose (UA) Negative (Negative) Urine Ketones Negative (Negative) Urine Blood Negative (Negative) Urine Nitrite Negative (Negative) Urine Bilirubin Negative (Negative) Urine Urobilinogen <2.0 (<2.0) mg/dL Ur Leukocyte Esterase Negative (Negative) Disposition Clinical Impression: PID (pelvic inflammatory disease), Hemorrhagic ovarian cyst Disposition: HOME SELF-CARE Condition: Fair Instructions (If sedation given, give patient instructions): Pelvic Inflammatory Disease (ED) Additional Instructions: Pelvic rest, take antibiotics as prescribed, call [facility] morning for an appointment. Continue taking home medications previously prescribed for pain and nausea. Return to the emergency department with any new, worsening, or concerning symptoms. Is patient prescribed a controlled substance at d/c from ED?: No Referrals: Tere Wilkinson MD [Primary Care Provider] - 1-2 days Kiara Barajas MD [STAFF PHYSICIAN] - 1-2 days Time of Disposition: 00:14
[2021-01-01 22:26] LABS: ALT 14 U/L (4-34); AST 23 U/L (14-36); African American GFR (CKD) >90 (>60 ml/min/1.73 sqM); Albumin 3.3 g/dL (3.5-5.0); Alkaline Phosphatase 44 U/L (38-126); Anion Gap 4 mmol/L; Blood Urea Nitrogen 13 mg/dL (7-17); Calcium 8.4 mg/dL (8.4-10.2); Carbon Dioxide 25 mmol/L (22-30); Chloride 107 mmol/L (98-107); Glucose 88 mg/dL (74-99); Non-African American GFR(CKD) >90 (>60 ml/min/1.73 sqM); Potassium 4.1 mmol/L (3.5-5.1); Sodium 136 mmol/L (137-145); Total Bilirubin 0.3 mg/dL (0.2-1.3); Total Protein 6.1 g/dL (6.3-8.2)
[2021-01-01] MEDS ORDERED: cefTRIAXone IN SWFI 1,000 MG/10 ML SYRINGE IVP STA (23:46)
[2021-01-01] MEDS ORDERED: MORPHINE SULFATE 2 MG/ML SYRINGE IVP ONE (23:46)
[2021-01-02 00:12] VITALS: RESP 20
[2021-01-02 00:31] VITALS: BP 130/84; PULSE 84; TEMP 98.2
== END 2021-01-02 00:31 | disposition home or self-care (01) ==
LOC: EC 18:09
DX: N73.9 Female pelvic inflammatory disease, unspecified (principal); N83.209 Unspecified ovarian cyst, unspecified side; F41.9 Anxiety disorder, unspecified; Z79.1 Long term (current) use of non-steroidal anti-inflammatories (NSAID); Z88.5 Allergy status to narcotic agent; Z88.6 Allergy status to analgesic agent; Z88.8 Allergy status to other drugs, medicaments and biological substances; Z90.49 Acquired absence of other specified parts of digestive tract; Z79.899 Other long term (current) drug therapy
CPT/HCPCS: 36415; 80053; 85025; 81003; 99284; 96374; 96375 ×5; 96361; J2765; J2405; J0696; J2270; J1170; J1885

== ENCOUNTER → 2021-01-06 | Outpatient (CLI) | payer MEDICAID ==
--- NOTE | 2021-01-07 04:58 | MR ---
EXAMINATION TYPE: MR pelvis wo/w con DATE OF EXAM: 01/06/2021 COMPARISON: CT pelvis 12/21/2020 HISTORY: Pelvic mass. Patient has mid urethal sling. CONTRAST: Standard multiplanar, multisequence MRI departmental protocol utilizing 7 mL intravenous Gadavist chase olinium contrast. The bladder distends smoothly. Uterus is anteverted. Endometrium appears normal. Cervix is intact. Th ere is no evidence of vaginal mass. There is an oval-shaped fluid collection between the rectum and t he lower uterine segment in the cul-de-sac. This measures 3.4 x 2 cm. There appears to be some calcif ications with angular margins within the fluid and this appears similar to the recent pelvis CT scan which shows some unusual calcifications in the pelvis posterior to the lower uterine segment. There are multiple cysts on both ovaries. Ovaries are not enlarged. There is no solid ovarian mass id entified. The lower lumbar spine and the sacrum appear intact. I see no focal bone destruction. Sacroiliac join ts are intact. IMPRESSION: There is small fluid collection in the cul-de-sac with low signal foci that have angular margins and consistent with gallstones. These appear not changed compared to the pelvis CT scan of 12/29/2020 2 gallstones in the cul-de-sac appear to be present in the left lower quadrant adjacent to the sigmoi d colon on the CT scan of 07/04/2018 and have since migrated into the cul-de-sac.
== END | disposition home or self-care (01) ==
LOC: RADMRIMAIN 14:03
PROVIDERS: ATTEND Obstetrics & Gynecology
DX: K82.8 Other specified diseases of gallbladder (principal)
CPT/HCPCS: 72197; A9585

== ENCOUNTER → 2021-01-06 | Outpatient (CLI) | payer MEDICAID ==
--- NOTE | 2021-01-06 09:35 | XR ---
EXAMINATION TYPE: XR abdomen 1V DATE OF EXAM: 01/06/2021 COMPARISON: None HISTORY: Abdomen pain, possible retained foreign body TECHNIQUE: Abdomen is performed in this single supine view. FINDINGS: There is mild fecal debris through the colon. Psoas margins are normal. Organomegaly is not evident. Cholecystectomy clips are in the right upper quadrant. There is likely a bone island on the right iliac crest. Postsurgical sutures within the right lower quadrant. Suspicious foreign bodies are not identified. IMPRESSION: 1. Mild fecal retention. 2. No suspicious performed body is identified.
== END | disposition home or self-care (01) ==
LOC: RADXRMAIN 08:54
PROVIDERS: ATTEND Obstetrics & Gynecology
DX: K59.00 Constipation, unspecified (principal)
CPT/HCPCS: 74018

== ENCOUNTER 2021-01-08 14:12 | Observation (INO) | payer MEDICAID ==
[2021-01-08] MEDS ORDERED: SODIUM CHLORIDE 0.9% 1,000 ML IV STA (20:17)
[2021-01-08] MEDS ORDERED: ONDANSETRON 4 MG/2 ML VIAL IVP STA (20:17)
[2021-01-08] MEDS ORDERED: HYDROmorphone 1 MG/ML 1 ML SYRINGE IVP STA (20:17)
[2021-01-08] MEDS ORDERED: NALOXONE 0.4 MG/ML 1 ML VIAL IV PRN (20:24)
[2021-01-08] MEDS ORDERED: HYDROmorphone 1 MG/ML 1 ML SYRINGE IVP PRN (20:24)
--- NOTE | 2021-01-08 20:26 | ED ---
Abdominal Pain HPI - General Chief Complaint: Abdominal Pain Stated Complaint: Lower abd pain PCP sent pt Time Seen by Provider: 01/08/21 20:06 Source: patient Mode of arrival: ambulatory Limitations: no limitations - History of Present Illness Initial Comments: 35 year-old female patient presents to the emergency department for evaluation of pelvic pain that started three weeks ago. Patient states that this is her third visit to the emergency department. States that she had outpatient MRI and was called today and informed she has gallstones in her pelvis. She states that most of her pain is in her back at this time. States she cannot eat and it is painful to sit and walk. She denies any abnormal vaginal bleeding or discharge. Denies any fever or chills. Denies nausea or vomiting. Has been taking pain medication at home without relief. States she was told by her primary care physician to come in for surgical consultation. - Related Data Home Medications Medication Instructions Recorded Confirmed Dextroamphetamine/Amphetamine 20 mg PO BID 12/29/20 01/08/21 [Adderall] Spironolactone 50 mg PO BID 12/29/20 01/08/21 Doxycycline Hyclate 100 mg PO BID 01/01/21 01/08/21 HYDROcodone/APAP 5-325MG [[place] 5] 1 tab PO Q6H PRN 01/01/21 01/08/21 Ketorolac [Toradol] 10 mg PO Q8H 01/08/21 01/08/21 Allergies Allergy/AdvReac Type Severity Reaction Status Date / Time adhesive Allergy Rash/Hives Verified 01/08/21 21:55 codeine AdvReac LOW HEART Verified 01/08/21 21:55 [From Tylenol-Codeine #3] RATE AND RESTLESSNESS tramadol AdvReac LOW HEART Verified 01/08/21 21:55 RATE AND RESTLESSNESS Review of Systems ROS Statement: Those systems with pertinent positive or pertinent negative responses have been documented in the HPI. ROS Other: All systems not noted in ROS Statement are negative. Past Medical History Past Medical History: Neurologic Disorder Additional Past Medical History / Comment(s): HX MIGRAINES. POSSIBLE STOMACH ULCER History of Any Multi-Drug Resistant Organisms: None Reported Past Surgical History: Appendectomy, Cholecystectomy Additional Past Surgical History / Comment(s): Urethral sling Past Anesthesia/Blood Transfusion Reactions: No Reported Reaction Past Psychological History: Anxiety Smoking Status: Never smoker Past Alcohol Use History: Rare Past Drug Use History: None Reported - Past Family History Mother Family Medical History: No Reported History General Exam Limitations: no limitations General appearance: alert, in no apparent distress, other (This is a well- developed, well-nourished, nontoxic-appearing adult female patient in no acute distress. Vital signs upon presentation temperature 98.9F, pulse 62, respirations 20, blood pressure 132/86, pulse ox 100% on room air.) ENT exam: Present: normal exam, normal oropharynx, mucous membranes moist Respiratory exam: Present: normal lung sounds bilaterally. Absent: respiratory distress, wheezes, rales, rhonchi, stridor Cardiovascular Exam: Present: regular rate, normal rhythm, normal heart sounds. Absent: systolic murmur, diastolic murmur, rubs, gallop, clicks GI/Abdominal exam: Present: soft, tenderness (Suprapubic), normal bowel sounds. Absent: distended, guarding, rebound, rigid Neurological exam: Present: alert, oriented X3, CN II-XII intact Psychiatric exam: Present: normal affect, normal mood Skin exam: Present: warm, dry, intact, normal color. Absent: rash Course Vital Signs 01/08/21 01/08/21 01/08/21 15:28 20:50 23:31 Temperature 98.9 F 98.1 F 98.0 F Pulse Rate 62 65 65 Respiratory 20 18 18 Rate Blood Pressure 132/86 112/58 107/56 O2 Sat by Pulse 100 99 100 Oximetry 01/09/21 01:20 Temperature Pulse Rate 75 Respiratory 18 Rate Blood Pressure 115/87 O2 Sat by Pulse 98 Oximetry Medical Decision Making - Medical Decision Making 35-year-old female patient presented to the emergency department today for evaluation of pelvic pain and pain in the low back. Physical examination did reveal suprapubic tenderness. Labs reviewed and were unremarkable. I did review MRI results which showed gallstones in the pelvic cul de sac. Patient had her ga llbladder out in 2015. Patient is refusing to see Dr. Lemus. She will be admitted to the hospital with consult to surgery Dr. Edmond. She is agreeable with this plan. Pain management will be provided. My attending is Dr. Vasquez. - Lab Data Result diagrams: 01/08/21 20:57 01/08/21 20:57 - Radiology Data Radiology results: report reviewed Disposition Clinical Impression: Pelvic pain Disposition: ADMITTED IP TO THIS [facility] Condition: Serious Decision to Admit Reason: Admit from EC Decision Date: 01/08/21 Decision Time: 20:26
[2021-01-08] MEDS: SODIUM CHLORIDE 0.9% 1,000 ML IV SCH (20:53)
[2021-01-08 21:13] LABS: Appearance,Urine Cloudy (Clear); Bacteria,Urine Rare /hpf; Basophils % (A) 1 %; Bilirubin,Urine Negative (Negative); Blood,Urine Small (Negative); Color,Urine Light Yellow; Eosinophils # (A) 0.1 k/uL (0-0.7); Eosinophils % (A) 1 %; Glucose,Urine (UA) Negative (Negative); HCT 38.3 % (34.0-46.0); HGB 12.9 gm/dL (11.4-16.0); Ketones,Urine Negative (Negative); Leukocyte Esterase,Urine Negative (Negative); Lymphocytes # (A) 3.3 k/uL (1.0-4.8); Lymphocytes % (A) 43 %; MCHC 33.7 g/dL (31.0-37.0); MCV 94.9 fL (80.0-100.0); Mean Platelet Volume 7.8; Monocytes # (A) 0.3 k/uL (0-1.0); Monocytes % (A) 4 %; Neutrophils # (A) 3.8 k/uL (1.3-7.7); Neutrophils % (A) 49 %; Nitrite,Urine Negative (Negative); PH, Urine 6.5 (5.0-8.0); Platelet Count 269 k/uL (150-450); Protein,Urine Negative (Negative); RBC 4.03 m/uL (3.80-5.40); RBC,Urine 1 /hpf (0-5); RDW 12.5 % (11.5-15.5); Specific Gravity,Urine 1.005 (1.001-1.035); Squamous Epithelial Cell,Urine 7 /hpf (0-4); Urobilinogen,Urine <2.0 mg/dL (<2.0); WBC 7.7 k/uL (3.8-10.6); WBC,Urine 3 /hpf (0-5)
[2021-01-08 21:17] LABS: ALT 18 U/L (4-34); AST 25 U/L (14-36); African American GFR (CKD) >90 (>60 ml/min/1.73 sqM); Albumin 4.1 g/dL (3.5-5.0); Alkaline Phosphatase 54 U/L (38-126); Amylase 44 U/L (30-110); Anion Gap 7 mmol/L; Blood Urea Nitrogen 12 mg/dL (7-17); Calcium 9.4 mg/dL (8.4-10.2); Carbon Dioxide 25 mmol/L (22-30); Chloride 105 mmol/L (98-107); Glucose 87 mg/dL (74-99); Lipase 52 U/L (23-300); Non-African American GFR(CKD) >90 (>60 ml/min/1.73 sqM); Potassium 4.3 mmol/L (3.5-5.1); Sodium 137 mmol/L (137-145); Total Bilirubin 0.5 mg/dL (0.2-1.3)
[2021-01-08] MEDS: ONDANSETRON 4 MG/2 ML VIAL IVP PRN (23:35)
[2021-01-09] MEDS: MORPHINE SULFATE 4 MG/ML SYRINGE IVP PRN ×3 (01:21→13:12)
[2021-01-09] MEDS: ONDANSETRON 4 MG/2 ML VIAL IVP PRN (07:37)
[2021-01-09] MEDS ORDERED: NON FORMULARY DRUG (Ketorolac 10 MG Tab) PO SCH (09:00)
[2021-01-09] MEDS: SPIRONOLACTONE 25 MG TAB PO SCH ×2 (10:28→20:32)
[2021-01-09] MEDS: NON FORMULARY DRUG (Dextroamphetamine/Amphetamine [Adderall] 20 MG Tablet) PO SCH ×2 (10:28→17:08)
[2021-01-09] MEDS: HYDROcodone/APAP 5-325MG 1 EACH TAB PO PRN (11:53)
--- NOTE | 2021-01-09 12:43 | P.HPIM ---
History of Present Illness H&P Date: 01/09/21 History of present illness This is a 35-year-old female of Dr. Metcalf with a past medical history for ADHD. For the last few weeks patient has been complaining of severe pelvic pain resulting in multiple trips to the emergency department. Patient also seen her [employer] who ordered a ultrasound and an MRI. MRI report impression: There is a small fluid collection in the cul-de-sac with low signal foci that are angular margins and consistent with gallstones. These appear not to change compared to the pelvis CT of 12/29/2020. 2 gallstones in the cul-de-sac appeared to be p resent in the left lower quadrant adjacent to the sigmoid colon on computed tomography scan of 07/04/2018 and has since migrated into the cul-de-sac. She has significant amount of pain to her lower back. It making it difficult to sit or walk. Patient denies any abnormal vaginal bleeding or discharge. She denies any fever chills nausea or vomiting. She has been taking pain medications however they result in very little relief. She is instructed to come to the hospital for a surgical consultation from her primary care physician. Patient is found resting in bed in moderate distress related to pain. Patient states that her pain is a bit better compared to previously. We are awaiting a surgical consult for plan of care. Patient remains afebrile, heart rate 72, respirations 18, blood pressure 114/76, pulse ox 100% on room air. WBC 7.7, hemoglobin 12.9, platelets 269, potassium 4.3, BUN 12, creatinine 0.57. Review Of Systems: Constitutional: No fever, no chills, no night sweats. No weight change. No weakness, fatigue or lethargy. No daytime sleepiness. Reports pelvic pain and pressure EENT: No headache. No blurred vision or double vision, no loss of vision. No loss of Hearing, no ringing in the ears, no dizziness. No nasal drainage or congestion. No epistaxis. No sore throat. Lungs: No shortness of breath, cough, no sputum production. No wheezing. Cardiovascular: No chest pain, no lower extremity edema. No palpitations. No paroxysmal nocturnal dyspnea. No orthopnea. No lightheadedness or dizziness. No syncopal episodes. Abdominal: no abdominal discomfort. No nausea, vomiting. no diarrhea. No constipation. No bloody or tarry stools. no loss of appetite. Genitourinary: No dysuria, increased frequency, urgency. No urinary retention. Musculoskeletal: No myalgias. No muscle weakness, no gait dysfunction, no frequent falls. No back pain. No neck pain. Integumentary: No wounds, no lesions. No rash or pruritus. No unusual bruising. No change in hair or nails. Neurologic: No aphasia. No facial droop. No change in mentation. No head injury. No headache. No paralysis. No paresthesia. Psychiatric: No depression. No anxiety. No mood swings. Endocrine: No abnormal blood sugars. No weight change. No excessive sweating or thirst. Social history: Quit smoking in 2018, social alcohol use, denies illicit drug use. Family history: Patient is single with 3 boys were healthy, a brother and sister who are both healthy with no major health problems, her mother is 51 with stage III rectal cancer in remission, and status post 54 and healthy. Physical examination General Appearance: Alert, cooperative, no distress, 35-year-old fe male appears stated age. Neck HEENT: Supple, no lymphadenopathy, no thyroid enlargement, no carotid bruits. Lungs: Clear to auscultation without crackles or wheezes no rhonchi, no deformity. Chest Wall: Chest wall normal expansion with deep inspiration no tenderness and no deformity was found on exam, no costochondral pain or discomfort. Heart: Regular rate and rhythm, S1, S2 normal, no murmur, rub or gallop. Back: Symmetric, no curvature, ROM normal, no CVA tenderness. Abdomen: Soft, non-tender, no rebound or rigidity, no hepatosplenomegaly. Extremities: Extremities normal, atraumatic, no cyanosis or edema. Pulses: 2+ and symmetric. Skin: Skin color, texture, tugor normal, no rashes or lesions. Neurologic: Alert oriented x3 cranial nerves II through XII intact, no motor deficit, no abnormal balance or gait Assessment and plan 1. Pelvic pain with gallstones and pelvis. Consult surgery, continue pain management with Toradol and [place]'s 5. 2. ADHD. Continue Adderall 3. Acne. Continue spironolactone 50 mg by mouth twice a day, doxycycline 100 mg by mouth twice a day. 4. DVT prophylaxis. Ambulation 5. GI prophylaxis. Pepcid CODE STATUS: Full code Discharge plan: More than likely home Impression and plan of care have been directed as dictated by the signing physician. Swati George nurse practitioner acting as scribe for signing physician. Past Medical History Past Medical History: Neurologic Disorder Additional Past Medical History / Comment(s): HX MIGRAINES. POSSIBLE STOMACH ULCER History of Any Multi-Drug Resistant Organisms: None Reported Past Surgical History: Appendectomy, Cholecystectomy Additional Past Surgical History / Comment(s): Urethral sling Past Anesthesia/Blood Transfusion Reactions: No Reported Reaction Past Psychological History: Anxiety Smoking Status: Never smoker Past Alcohol Use History: Rare Past Drug Use History: None Reported - Past Family History Mother Family Medical History: No Reported History Medications and Allergies Home Medications Medication Instructions Recorded Confirmed Type Dextroamphetamine/Amphetamine 20 mg PO BID 12/29/20 01/08/21 History [Adderall] Spironolactone 50 mg PO BID 12/29/20 01/08/21 History Doxycycline Hyclate 100 mg PO BID 01/01/21 01/08/21 History HYDROcodone/APAP 5-325MG [[place] 5] 1 tab PO Q6H PRN 01/01/21 01/08/21 History Ketorolac [Toradol] 10 mg PO Q8H 01/08/21 01/08/21 History Allergies Allergy/AdvReac Type Severity Reaction Status Date / Time adhesive Allergy Rash/Hives Verified 01/08/21 21:55 codeine AdvReac LOW HEART Verified 01/08/21 21:55 [From Tylenol-Codeine #3] RATE AND RESTLESSNESS tramadol AdvReac LOW HEART Verified 01/08/21 21:55 RATE AND RESTLESSNESS Physical Exam Vitals: Vital Signs Temp Pulse Pulse Resp BP BP Pulse Ox 01/09/21 07:00 98.1 F 72 18 114/76 100 01/09/21 02:36 18 01/09/21 02:00 98.1 F 61 17 103/72 98 01/09/21 01:20 75 18 115/87 98 01/08/21 23:31 98.0 F 65 18 107/56 100 01/08/21 20:50 98.1 F 65 18 112/58 99 01/08/21 15:28 98.9 F 62 20 132/86 100 Intake and Output 01/08/21 01/09/21 01/09/21 22:59 06:59 14:59 Other: Voiding Method Toilet Toilet # Voids 1 Weight 70.307 kg 70.307 kg Results CBC & Chem 7: 01/08/21 20:57 01/08/21 20:57 Labs: Abnormal Lab Results - Last 24 Hours (Table) 01/08/21 Range/Units 20:57 Urine Appearance Cloudy H (Clear) Urine Blood Small H (Negative) Ur Squamous Epith Cells 7 H (0-4) /hpf Urine Bacteria Rare H (None) /hpf Thrombosis Risk Factor Assmnt - Choose All That Apply Any of the Below Risk Factors Present?: No Other Risk Factors: No Other congenital or acquired thrombophilia - If yes, enter type in comment: No Thrombosis Risk Factor Assessment Level: Very Low Risk
[2021-01-09] MEDS: SODIUM CHLORIDE 0.9% 1,000 ML IV SCH (12:47)
--- NOTE | 2021-01-09 13:27 | P.GSCN ---
History of Present Illness Consult date: 01/09/21 History of present illness: 35-year-old female presented to the emergency department with significant complaint of pelvic pain. This has been going on for a few weeks now and the patient has had multiple emergency department visits and visits with her primary care physician and clinical staff rn. She describes the pain as pressure-like and feeling of significant warmth in the pelvis. She is unable to sit appropriately without having significant amount of pain. Initially, workup was aimed at adnexal organs and patient was found to have ovarian cysts on imaging. However, additional finding of abnormal radiopaque lesion was noted in her CT of the pelvis. This was noted to be around the cul-de-sac. Further workup was performed with pelvis MRI. Concern for migrated gallstone was noted in the cul-de-sac between the colon and uterus. Second opinion was also obtained of this pelvis MRI, confirming this finding. Patient did have cholecystectomy in 2016. She states that she has not had any significant discomfort like this until the past 2 weeks. She also has been tried on antibiotics without any success. Review of Systems All systems: negative Past Medical History Past Medical History: Neurologic Disorder Additional Past Medical History / Comment(s): HX MIGRAINES. POSSIBLE STOMACH ULCER History of Any Multi-Drug Resistant Organisms: None Reported Past Surgical History: Appendectomy, Cholecystectomy Additional Past Surgical History / Comment(s): Urethral sling Past Anesthesia/Blood Transfusion Reactions: No Reported Reaction Past Psychological History: Anxiety Smoking Status: Never smoker Past Alcohol Use History: Rare Past Drug Use History: None Reported - Past Family History Mother Family Medical History: No Reported History Medications and Allergies Home Medications Medication Instructions Recorded Confirmed Type Dextroamphetamine/Amphetamine 20 mg PO BID 12/29/20 01/08/21 History [Adderall] Spironolactone 50 mg PO BID 12/29/20 01/08/21 History Doxycycline Hyclate 100 mg PO BID 01/01/21 01/08/21 History HYDROcodone/APAP 5-325MG [[place] 5] 1 tab PO Q6H PRN 01/01/21 01/08/21 History Ketorolac [Toradol] 10 mg PO Q8H 01/08/21 01/08/21 History Allergies Allergy/AdvReac Type Severity Reaction Status Date / Time adhesive Allergy Rash/Hives Verified 01/08/21 21:55 codeine AdvReac LOW HEART Verified 01/08/21 21:55 [From Tylenol-Codeine #3] RATE AND RESTLESSNESS tramadol AdvReac LOW HEART Verified 01/08/21 21:55 RATE AND RESTLESSNESS Surgical - Exam Osteopathic Statement: *. No significant issues noted on an osteopathic structural exam other than those noted in the History and Physical/Consult. Vital Signs Temp Pulse Resp BP Pulse Ox 98.9 F 62 20 132/86 100 01/08/21 15:28 01/08/21 15:28 01/08/21 15:28 01/08/21 15:28 01/08/21 15:28 - General well nourished, no distress - Eyes normal ocular movement - ENT normal mucosa, no hearing loss - Neck trachea midline - Respiratory normal respiratory effort - Abdomen Abdomen: soft, non tender - Neurologic normal coordination, normal sensation - Psychiatric oriented to time, oriented to person, oriented to place Results - Labs 01/08/21 20:57 01/08/21 20:57 Abnormal Lab Results - Last 24 Hours (Table) 01/08/21 Range/Units 20:57 Urine Appearance Cloudy H (Clear) Urine Blood Small H (Negative) Ur Squamous Epith Cells 7 H (0-4) /hpf Urine Bacteria Rare H (None) /hpf Diabetes panel 01/08/21 Range/Units 20:57 Sodium 137 (137-145) mmol/L Potassium 4.3 (3.5-5.1) mmol/L Chloride 105 (98-107) mmol/L Carbon Dioxide 25 (22-30) mmol/L BUN 12 (7-17) mg/dL Creatinine 0.57 (0.52-1.04) mg/dL Glucose 87 (74-99) mg/dL Calcium 9.4 (8.4-10.2) mg/dL AST 25 (14-36) U/L ALT 18 (4-34) U/L Alkaline Phosphatase 54 (38-126) U/L Total Protein 7.0 (6.3-8.2) g/dL Albumin 4.1 (3.5-5.0) g/dL Calcium panel 01/08/21 Range/Units 20:57 Calcium 9.4 (8.4-10.2) mg/dL Albumin 4.1 (3.5-5.0) g/dL Pituitary panel 01/08/21 Range/Units 20:57 Sodium 137 (137-145) mmol/L Potassium 4.3 (3.5-5.1) mmol/L Chloride 105 (98-107) mmol/L Carbon Dioxide 25 (22-30) mmol/L BUN 12 (7-17) mg/dL Creatinine 0.57 (0.52-1.04) mg/dL Glucose 87 (74-99) mg/dL Calcium 9.4 (8.4-10.2) mg/dL Adrenal panel 01/08/21 Range/Units 20:57 Sodium 137 (137-145) mmol/L Potassium 4.3 (3.5-5.1) mmol/L Chloride 105 (98-107) mmol/L Carbon Dioxide 25 (22-30) mmol/L BUN 12 (7-17) mg/dL Creatinine 0.57 (0.52-1.04) mg/dL Glucose 87 (74-99) mg/dL Calcium 9.4 (8.4-10.2) mg/dL Total Bilirubin 0.5 (0.2-1.3) mg/dL AST 25 (14-36) U/L ALT 18 (4-34) U/L Alkaline Phosphatase 54 (38-126) U/L Total Protein 7.0 (6.3-8.2) g/dL Albumin 4.1 (3.5-5.0) g/dL Assessment and Plan Plan: I had a lengthy discussion with the patient and the patient's mother who is at bedside. Retained gallstone is a rare finding, however case studies have been noted with retained gallstones. The patient has significant amount of discomfort and is unable to perform her activities of daily living and she has had multiple visits to the emergency department. Based on finding on imaging of approximately 1 cm gallstone and approximately 3 cm fluid collection around this area, it is reasonable to consider laparoscopy for suction and irrigation of this fluid capsule and attempt to remove this gallstone. The patient and the patient's mother are aware that there is no guarantee that the gallstone will be able to be retrieved. At this point, performing a laparotomy would be conside red quite aggressive and is not suggested. The patient was agreeable with this. Case will be discussed with the admitting physician. I did offer the patient evaluation by her original surgeon, however she refused. Plan is for diagnostic laparoscopy to be performed tomorrow morning.
[2021-01-09] MEDS ORDERED: MAGNESIUM CITRATE 296 ML BOTTLE PO ONE (17:30)
[2021-01-10] MEDS: MORPHINE SULFATE 4 MG/ML SYRINGE IVP PRN ×3 (00:25→23:38)
[2021-01-10] MEDS: ONDANSETRON 4 MG/2 ML VIAL IVP PRN ×2 (00:25→07:22)
[2021-01-10] MEDS: SODIUM CHLORIDE 0.9% 1,000 ML IV SCH ×2 (00:26→12:31)
[2021-01-10] MEDS: NON FORMULARY DRUG (Dextroamphetamine/Amphetamine [Adderall] 20 MG Tablet) PO SCH ×2 (07:17→16:54)
[2021-01-10] MEDS ORDERED: METOCLOPRAMIDE 5 MG/ML 2 ML VIAL IVP ONE (09:45)
[2021-01-10] MEDS ORDERED: NEOSTIGMINE 1 MG/ML 10 ML VIAL ONE (09:48)
[2021-01-10] MEDS ORDERED: fentaNYL (PF) 50 MCG/ML 2 ML AMP ONE (09:48)
[2021-01-10] MEDS ORDERED: HYDROmorphone (PF) 1 MG/ML ONE (09:48)
[2021-01-10] MEDS ORDERED: PROPOFOL 10 MG/ML 20 ML VIAL IV ONE (09:48)
[2021-01-10] MEDS ORDERED: ROCURONIUM 10 MG/ML (5 ML VIAL) IV ONE (09:48)
[2021-01-10] MEDS ORDERED: GLYCOPYRROLATE 0.2 MG/ML 2 ML VIAL ONE (09:48)
[2021-01-10] MEDS ORDERED: SUCCINYLCHOLINE CHLORIDE 100 MG/5 ML SYR IV ONE (09:48)
[2021-01-10] MEDS ORDERED: MIDAZOLAM 2 MG/2 ML VIAL ONE (09:48)
[2021-01-10] MEDS ORDERED: LIDOCAINE 1% INJ 10MG/ML (20 ML MDV) ONE (09:48)
[2021-01-10] MEDS ORDERED: KETOROLAC 15 MG/ML 1 ML VIAL ONE (09:48)
[2021-01-10] MEDS ORDERED: HEPARIN SODIUM,PORCINE 5,000 UNIT/ML 1 ML VIAL ONE (09:48)
[2021-01-10] MEDS ORDERED: LIDOCAINE 1%-EPI 1:100,000 20 ML VIAL SQ ONE ×3 (09:53→10:15)
[2021-01-10] MEDS ORDERED: SODIUM CHLORIDE 0.9% 1,000 ML IV ONE (09:53)
[2021-01-10] MEDS ORDERED: LACTATED RINGERS 1,000 ML IV ONE (10:58)
--- NOTE | 2021-01-10 11:01 | P.OP ---
Date of Procedure: 01/10/21 Preoperative Diagnosis: Retained gallstones Postoperative Diagnosis: Retained gallstones Procedure(s) Performed: Diagnostic laparoscopy with retrieval of retained gallstones and intra-abdominal washout Anesthesia: PEDRO LUIS Surgeon: Sejal Edmond Pathology: other (Retained gallstones, culture of intra-abdominal collection) Condition: stable Disposition: floor Indications for Procedure: 35-year-old female with recent significant pelvic pain for the past few weeks that have resulted in multiple emergency department visits. On both emergency department and outpatient workup, consideration and diagnosis of retained gallstones has been made. After discussion with the patient and the patient's mother, decision was made for diagnostic laparoscopy for evaluation and attempted retrieval. Risks, benefits and alternatives were provided to the patient. She is aware that there may be injury to the surrounding organs and possibility of not finding any retained stones. She has provided consent prior to procedure. Operative Findings: Retained gallstones in right side of the cul-de-sac with surrounding capsule formation Description of Procedure: The patient was brought to the operating suite and placed in supine position on the operating table. Sedation was achieved by anesthesia. The patient did undergo endotracheal intubation. The patient was then prepped and draped in regular sterile fashion. A super umbilical incision was made dissection was carried to the fascia. The fascia was incised and a 12 mm trocar was placed. Pneumoperitoneum was then achieved. 2 additional 5 mm ports were placed on both right and left lateral aspects of the abdomen. The patient was then placed in deep Trendelenburg position. Probe was used to elevate the uterus and immediate fluid collection that appeared sanguinous was noted. Suction was performed and capsule was clearly visualized. DeBakey was used to break the wall of the capsule and multiple adhered to gallstones were visualized. These gallstones were adhered is 1 collection and grasped with the DeBakey and retrieved. There were placed in an Endo Catch bag and removed from the abdomen. Further examination of this area revealed capsule wall. The capsule wall was broken piecemeal with the DeBakey. This cultures of this capsule were also taken. Copious muss irrigation was placed in the pelvis and suctioned. Hemostasis was noted to be maintained. The 12 mm trocar site fascia was then closed using 0 Vicryl suture in interrupted format using a Damien-Juaquin device. Pneumoperitoneum was released and all incision sites were closed with 4-0 Vicryl subcuticular suture. The patient was awakened in the operating suite and taken to post anesthesia care unit in stable condition.
--- NOTE | 2021-01-10 11:50 | P.PN ---
Subjective Progress Note Date: 01/10/21 This is a 35-year-old female of Dr. Metcalf with a past medical history for ADHD. For the last few weeks patient has been complaining of severe pelvic pain resulting in multiple trips to the emergency department. Patient also seen her CANDY BUTCHER who ordered a ultrasound and an MRI. MRI report impression: There is a small fluid collection in the cul-de-sac with low signal foci that are angular margins and consistent with gallstones. These appear not to change compared to the pelvis CT of 12/29/2020. 2 gallstones in the cul-de-sac appeared to be present in the left lower quadrant adjacent to the sigmoid colon on computed tomography scan of 07/04/2018 and has since migrated into the cul-de-sac. She has significant amount of pain to her lower back. It making it difficult to sit or walk. Patient denies any abnormal vaginal bleeding or discharge. She denies any fever chills nausea or vomiting. She has been taking pain medications however they result in very little relief. She is instructed to come to the hospital for a surgical consultation from her primary care physician. Patient is found resting in bed in moderate distress related to pain. Patient states that her pain is a bit better compared to previously. We are awaiting a surgical consult for plan of care. Patient remains afebrile, heart rate 72, respirations 18, blood pressure 114/76, pulse ox 100% on room air. WBC 7.7, hemoglobin 12.9, platelets 269, potassium 4.3, BUN 12, creatinine 0.57. 01/10: Patient is found resting comfortably in bed with no acute distress. Patient stated that she did have a rough night due to the magnesium citrate prep. She is scheduled for a laparoscopic appendectomy procedure today with Dr. Edmond. Patient continues to have the same discomfort to the pelvis and sacral area. Patient does have some nausea this morning which is related to the magnesium citrate prep. No other complaints or concerns. Review Of Systems: Constitutional: No fever, no chills, no night sweats. No weight change. No weakness, fatigue or lethargy. No daytime sleepiness. Reports pelvic pain and pressure EENT: No headache. No blurred vision or double vision, no loss of vision. No loss of Hearing, no ringing in the ears, no dizziness. No nasal drainage or congestion. No epistaxis. No sore throat. Lungs: No shortness of breath, cough, no sputum production. No wheezing. Cardiovascular: No chest pain, no lower extremity edema. No palpitations. No paroxysmal nocturnal dyspnea. No orthopnea. No lightheadedness or dizziness. No syncopal episodes. Abdominal: no abdominal discomfort. No nausea, vomiting. no diarrhea. No constipation. No bloody or tarry stools. no loss of appetite. Genitourinary: No dysuria, increased frequency, urgency. No urinary retention. Musculoskeletal: No myalgias. No muscle weakness, no gait dysfunction, no frequent falls. No back pain. No neck pain. Integumentary: No wounds, no lesions. No rash or pruritus. No unusual bruising. No change in hair or nails. Neurologic: No aphasia. No facial droop. No change in mentation. No head injury. No headache. No paralysis. No paresthesia. Psychiatric: No depression. No anxiety. No mood swings. Endocrine: No abnormal blood sugars. No weight change. No excessive sweating or thirst. Physical examination General Appearance: Alert, cooperative, no distress, 35-year-old female appears stated age. Neck HEENT: Supple, no lymphadenopathy, no thyroid enlargement, no carotid bruits. Lungs: Clear to auscultation without crackles or wheezes no rhonchi, no deformity. Chest Wall: Chest wall normal expansion with deep inspiration no tenderness and no deformity was found on exam, no costochondral pain or discomfort. Heart: Regular rate and rhythm, S1, S2 normal, no murmur, rub or gallop. Back: Symmetric, no curvature, ROM normal, no CVA tenderness. Abdomen: Soft, non-tender, no rebound or rigidity, no hepatosplenomegaly. Extremities: Extremities normal, atraumatic, no cyanosis or edema. Pulses: 2+ and symmetric. Skin: Skin color, texture, tugor normal, no rashes or lesions. Neurologic: Alert oriented x3 cranial nerves II through XII intact, no motor deficit, no abnormal balance or gait Assessment and plan 1. Pelvic pain with gallstones and pelvis. Consult surgery, continue pain management with Toradol and [place]'s 5. 2. ADHD. Continue Adderall 3. Acne. Continue spironolactone 50 mg by mouth twice a day, doxycycline 100 mg by mouth twice a day. 4. DVT prophylaxis. Ambulation 5. GI prophylaxis. Pepcid CODE STATUS: Full code Discharge plan: More than likely home Impression and plan of care have been directed as dictated by the signing physician. Swati George nurse practitioner acting as scribe for signing physician. Objective - Vital Signs Vital signs: Vital Signs Temp 98.4 F 01/10/21 07:00 Pulse 54 L 01/10/21 11:30 Resp 16 01/10/21 11:30 BP 104/65 01/10/21 11:30 Pulse Ox 99 01/10/21 11:30 Intake & Output 01/09/21 01/10/21 01/10/21 18:59 06:59 18:59 Intake Total 950 900 Output Total 5 Balance 950 895 Intake: IV 900 Intake, IV Titration 450 Amount Sodium Chloride 0.9% 1, 450 000 ml @ 75 mls/hr IV . [id number] CANDIDA Rx#:[id number] Oral 500 Output: Estimated Blood Loss 5 Other: Voiding Method Toilet Toilet Toilet # Voids 2 2 - Labs CBC & Chem 7: 01/08/21 20:57 01/08/21 20:57
[2021-01-10] MEDS: SPIRONOLACTONE 25 MG TAB PO SCH ×2 (12:33→19:53)
[2021-01-10] MEDS: HEPARIN SODIUM,PORCINE/PF 5,000 UNIT/0.5 ML SYRINGE SQ SCH ×2 (12:33→19:53)
[2021-01-10] MEDS: HYDROcodone/APAP 5-325MG 1 EACH TAB PO PRN (14:33)
[2021-01-10] MEDS: METOCLOPRAMIDE 5 MG/ML 2 ML VIAL IVP PRN ×2 (16:18→23:38)
[2021-01-10] MEDS: AMPICILLIN-SULBACTAM 3 GM in SODIUM CHLORIDE 0.9% 100 ML IVPB SCH ×2 (16:20→23:35)
[2021-01-11] MEDS: HYDROcodone/APAP 5-325MG 1 EACH TAB PO PRN (02:34)
[2021-01-11] MEDS: SODIUM CHLORIDE 0.9% 1,000 ML IV SCH (04:52)
[2021-01-11] MEDS: AMPICILLIN-SULBACTAM 3 GM in SODIUM CHLORIDE 0.9% 100 ML IVPB SCH (08:05)
[2021-01-11] MEDS: MORPHINE SULFATE 4 MG/ML SYRINGE IVP PRN (08:06)
[2021-01-11] MEDS: HEPARIN SODIUM,PORCINE/PF 5,000 UNIT/0.5 ML SYRINGE SQ SCH (08:06)
[2021-01-11] MEDS: METOCLOPRAMIDE 5 MG/ML 2 ML VIAL IVP PRN (08:07)
[2021-01-11] MEDS: SPIRONOLACTONE 25 MG TAB PO SCH (08:07)
[2021-01-11 08:32] VITALS: BP 123/85; PULSE 79; RESP 17; TEMP 98.4
--- NOTE | 2021-01-11 09:54 | P.DS ---
Providers Date of admission: 01/08/21 20:38 Expected date of discharge: 01/11/21 Attending physician: Agustín James Consults: 01/08/21 20:24 Consult Physician Routine Consulting Provider: Sejal Edmond Consult Reason/Comments: Gallstones in pelvis Do you want consulting provider notified?: Yes Primary care physician: Tere Wilkinson [facility] Hospital Course: This is a 35-year-old female of Dr. Wilkinson'zhang with a past medical history for ADHD. For the last few weeks patient has been complaining of severe pelvic pain resulting in multiple trips to the emergency department. Patient also seen her BICYCLE COURIER who ordered a ultrasound and an MRI. MRI report impression: There is a small fluid collection in the cul-de-sac with low signal foci that are angular margins and consistent with gallstones. These appear not to change compared to the pelvis CT of 12/29/2020. 2 gallstones in the cul-de-sac appeared to be present in the left lower quadrant adjacent to the sigmoid colon on computed tomography scan of 07/04/2018 and has since migrated into the cul-de-sac. She has significant amount of pain to her lower back. It making it difficult to sit or walk. Patient denies any abnormal vaginal bleeding or discharge. She denies any fever chills nausea or vomiting. She has been taking pain medications however they result in very little relief. She is instructed to come to the hospital for a surgical consultation from her primary care physician. Patient is found resting in bed in moderate distress related to pain. Patient states that her pain is a bit better compared to previously. We are awaiting a surgical consult for plan of care. Patient remains afebrile, heart rate 72, respirations 18, blood pressure 114/76, pulse ox 100% on room air. WBC 7.7, hemoglobin 12.9, platelets 269, potassium 4.3, BUN 12, creatinine 0.57. 01/10: Patient is found resting comfortably in bed with no acute distress. Patient stated that she did have a rough night due to the magnesium citrate pr ep. She is scheduled for a laparoscopic appendectomy procedure today with Dr. Edmond. Patient continues to have the same discomfort to the pelvis and sacral area. Patient does have some nausea this morning which is related to the magnesium citrate prep. No other complaints or concerns. 01/11: Patient states that she is feeling significantly improved abdominal pain. She states she still has some lower back pain but much better. We'll plan to send the patient on a course of Augmentin for 10 days, ONOFRE hose and incentive spirometry to be provided prior to discharge. 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 Patient will be discharged today in stable condition. DISCHARGE DIAGNOSES 1. Pelvic pain with gallstones in pelvis. 2. ADHD. 3. Acne. Discharge plan: home Impression and plan of care have been directed as dictated by the signing physician. Kiersten Aviles nurse practitioner acting as scribe for signing physician. Patient Condition at Discharge: Good Plan - Discharge Summary Discharge Rx Participant: No New Discharge Prescriptions: New Amoxicillin/Potassium Clav [Augmentin 875-125 Tablet] 1 tab PO BID 10 Days #20 tab Continue Spironolactone 50 mg PO BID Dextroamphetamine/Amphetamine [Adderall] 20 mg PO BID Ketorolac [Toradol] 10 mg PO Q8H HYDROcodone/APAP 5-325MG [[place] 5-325] 1 tab PO Q6H PRN #12 tab PRN Reason: Pain Discontinued Doxycycline Hyclate 100 mg PO BID Discharge Medication List Dextroamphetamine/Amphetamine [Adderall] 20 mg PO BID 12/29/20 [History] Spironolactone 50 mg PO BID 12/29/20 [History] Ketorolac [Toradol] 10 mg PO Q8H 01/08/21 [History] Amoxicillin/Potassium Clav [Augmentin 875-125 Tablet] 1 tab PO BID 10 Days #20 tab 01/11/21 [Rx] HYDROcodone/APAP 5-325MG [[place] 5-325] 1 tab PO Q6H PRN #12 tab 01/11/21 [Rx] Follow up Appointment(s)/Referral(s): Tere Wilkinson MD [Primary Care Provider] - 01/12/21 3:45 pm Sejal Edmond DO [Doctor of Osteopathic Medicine] - 01/18/21 3:30 pm Patient Instructions/Handouts: How to Use an Incentive Spirometer (DC), Gallstones (DC), Exploratory Laparoscopy (DC) Activity/Diet/Wound Care/Special Instructions: Patient is cleared medicallly to poultry farmworker. Otherwise, off work for one week. Discharge Disposition: HOME SELF-CARE
== END 2021-01-11 10:45 | disposition home or self-care (01) ==
LOC: EC 14:12 → 6NMEDSUR 20:38
PROVIDERS: ADMIT Internal Medicine Geriatric Medicine; ATTEND Internal Medicine Geriatric Medicine
DX: K91.86 Retained cholelithiasis following cholecystectomy (principal); R10.2 Pelvic and perineal pain; M54.50 Low back pain, unspecified; F90.9 Attention-deficit hyperactivity disorder, unspecified type; R11.0 Nausea; L70.9 Acne, unspecified; G43.909 Migraine, unspecified, not intractable, without status migrainosus; F41.9 Anxiety disorder, unspecified; Z20.822 Contact with and (suspected) exposure to COVID-19; Z87.891 Personal history of nicotine dependence; Z79.899 Other long term (current) drug therapy; Z79.1 Long term (current) use of non-steroidal anti-inflammatories (NSAID); Z79.2 Long term (current) use of antibiotics; Z88.5 Allergy status to narcotic agent; Z91.048 Other nonmedicinal substance allergy status; Z90.49 Acquired absence of other specified parts of digestive tract; Z80.0 Family history of malignant neoplasm of digestive organs
CPT/HCPCS: 49320; 49084; 96376 ×2; 96361 ×2; 96375 ×2; 96374; 99285; 88305; 80053; 82150; 83605; 83690; 85025; 81001; 81025; 87070; 87205; 87075; 87635; G0378 ×4; J2250; J2270 ×3; J1644 ×3; J2710; J2765 ×2; J0690; J2405 ×3; J2001; J3010; J1170 ×2; J0295 ×2; J1885; J0330; J2704

== ENCOUNTER 2021-02-28 11:16 | Emergency (ER) | payer MEDICAID ==
[2021-02-28 11:43] VITALS: TEMP 98.2
[2021-02-28] MEDS ORDERED: ACETAMINOPHEN TAB 500 MG TAB PO STA (12:59)
--- NOTE | 2021-02-28 13:05 | ED ---
General Adult HPI - General Chief complaint: Upper Respiratory Infection Stated complaint: Covid+/sob/fever/rash/headache Time Seen by Provider: 02/28/21 12:31 Source: patient, RN notes reviewed, old records reviewed Mode of arrival: ambulatory Limitations: no limitations - History of Present Illness Initial comments: I evaluated the patient when she was placed in a room. Patient was vaccinated for COVID 19. Patient is a 35-year-old female with no significant past medical history presents emergency Department complaining of COVID-19 infection. Tonya ent tested positive on 02/24/2021. Symptoms started on 02/23/2021. She is endorsing a mild wheezy cough, fatigue, joint pain, mild loss of taste and smell, decreased appetite. Patient noticed a mild rash over her right leg that is not painful, not irritated, does not itch. States she does have a history of shingles but this does not remind her of shingles. She does endorse mild intermittent fevers and chills. Denies any nausea, vomiting, diarrhea. Denies any numbness. Endorses a mild headache as tension-like 04/12. She has no other acute complaints at this time. She will like to be evaluated due to her worsening Covid-like symptoms. - Related Data Home Medications Medication Instructions Recorded Confirmed Dextroamphetamine/Amphetamine 20 mg PO BID 12/29/20 01/08/21 [Adderall] Spironolactone 50 mg PO BID 12/29/20 01/08/21 Ketorolac [Toradol] 10 mg PO Q8H 01/08/21 01/08/21 Previous Rx's Medication Instructions Recorded Amoxicillin/Potassium Clav 1 tab PO BID 10 Days #20 tab 01/11/21 [Augmentin 875-125 Tablet] HYDROcodone/APAP 5-325MG [[place] 1 tab PO Q6H PRN #12 tab 01/11/21 5-325] Acetaminophen [Tylenol Extra 500 mg PO Q6HR 7 Days #24 packet 02/28/21 Strength] Albuterol Inhaler [Ventolin Hfa 1 puff INHALATION RT-QID #8 gm 02/28/21 Inhaler] Allergies Allergy/AdvReac Type Severity Reaction Status Date / Time adhesive Allergy Rash/Hives Verified 02/28/21 11:43 codeine AdvReac LOW HEART Verified 02/28/21 11:43 [From Tylenol-Codeine #3] RATE AND RESTLESSNESS tramadol AdvReac LOW HEART Verified 02/28/21 11:43 RATE AND RESTLESSNESS Review of Systems ROS Statement: Those systems with pertinent positive or pertinent negative responses have been documented in the HPI. Review of Systems: CONST: Endorses mild fever EYES: Denies blurry vision ENT: Denies nasal congestion C/V: Denies Chest pain RESP: Endorses mild shortness of breath. GI: Denies abdominal pain : Denies dysuria SKIN: Endorses mild rash. MSK: Denies joint pain. NEURO: Denies headache ROS Other: All systems not noted in ROS Statement are negative. Past Medical History Past Medical History: Neurologic Disorder Additional Past Medical History / Comment(s): HX MIGRAINES. POSSIBLE STOMACH ULCER History of Any Multi-Drug Resistant Organisms: None Reported Past Surgical History: Appendectomy, Cholecystectomy Additional Past Surgical History / Comment(s): Urethral sling Past Anesthesia/Blood Transfusion Reactions: No Reported Reaction Past Psychological History: Anxiety Smoking Status: Never smoker Past Alcohol Use History: Rare Past Drug Use History: None Reported - Past Family History Mother Family Medical History: No Reported History General Exam - General Exam Comments Initial Comments: General: Appears in no acute distress. HEAD: Normal with no signs of head trauma. EYES: PERRLA, EOMI, conjunctiva normal, no discharge. ENT: Active rhinorrhea. Trachea midline. No stridor. RESPIRATORY: Clear breath sounds bilaterally. No wheezes or rhonchi. Not hypoxic. No respiratory distress. C/V: Regular rate and rhythm. S1 and S2 auscultated, no edema, peripheral pulses 2+ and intact throughout ABD: Abd is soft, nontender, nondistended EXT: Normal range of motion, no obvious deformity SKIN: Patient has a very mild papular rash located over the anterior and lateral aspect of her right thigh but is not dermatomal distribution. It is small, pinpoint and radius. The spots are mildly erythematous but no surrounding erythema or warmth are concerned for cellulitis. Is likely a viral reaction. No areas of induration or fluctuance. NEURO: Alert and oriented 4. No focal sensory strength deficits. Limitations: no limitations Course Vital Signs 02/28/21 02/28/21 02/28/21 11:39 12:30 13:30 Temperature 98.2 F 98.2 F Pulse Rate 86 82 Respiratory 18 20 20 Rate Blood Pressure 138/95 140/80 O2 Sat by Pulse 99 98 Oximetry 02/28/21 16:10 Temperature 98.2 F Pulse Rate 90 Respiratory 20 Rate Blood Pressure 137/87 O2 Sat by Pulse 98 Oximetry Medical Decision Making - Medical Decision Making Based on patient's presentation and physical exam, patient is a vaccinated 35-year-old with COVID-19. She has a mild viral rash over her right thigh. Otherwise she is in no respiratory distress. I discussed with her typical symptoms of Covid which she is experiencing. Did offer her Tylenol which she accepted. I can prescribe her an albuterol inhaler for home. I did offer the patient monoclonal antibiotic therapy which she accepted. I do not believe that she requires any further laboratory studies or imaging at this time. Patient will receive the monoclonal antibody therapy and subsequent discharged home after period of observation. She was in agreement this plan. Patient tolerated the therapy well. There is no ALLERGIC reaction. Patient st able for discharge home. I discussed quarantine with her. I will provide the patient with a prescription for Tylenol, albuterol inhaler. I instructed the patient to follow up with their PCP in the next 3 days. I explained that the patient should return to the emergency department if they experience any worsening symptoms. Strict return precautions were discussed with the patient. The patient expressed understanding of these instructions. I answered all questions that the patient had. The patient was discharged home in fair condition with their prescriptions and follow up information. Disposition Clinical Impression: COVID-19 virus infection Disposition: HOME SELF-CARE Condition: Fair Instructions (If sedation given, give patient instructions): Coronavirus Disease 2019 (COVID-19) Prescriptions: Acetaminophen [Tylenol Extra Strength] 500 mg PO Q6HR 7 Days #24 packet Albuterol Inhaler [Ventolin Hfa Inhaler] 1 puff INHALATION RT-QID #8 gm Is patient prescribed a controlled substance at d/c from ED?: No Referrals: Tere Wilkinson MD [Primary Care Provider] - 1-2 days
[2021-02-28] MEDS ORDERED: SODIUM CHLORIDE 0.9% 50 ML IVPB ONE (14:15)
[2021-02-28] MEDS ORDERED: CASIRIVIMAB (REGN10933) (EUA) 600 MG, IMDEVIMAB (REGN10987) (EUA) 600 MG in SODIUM CHLO... IVPB ONE (14:30)
[2021-02-28 16:16] VITALS: RESP 20
[2021-02-28 16:23] VITALS: BP 137/87; PULSE 90
== END 2021-02-28 16:10 | disposition home or self-care (01) ==
LOC: EC 11:16
DX: U07.1 COVID-19 (principal); Z88.6 Allergy status to analgesic agent; Z88.5 Allergy status to narcotic agent; Z91.09 Other allergy status, other than to drugs and biological substances
CPT/HCPCS: 99284; 96365; Q0243

== ENCOUNTER → 2021-03-11 | Outpatient (CLI) | payer MEDICAID ==
--- NOTE | 2021-03-11 13:47 | MR ---
PRE AND POSTCONTRAST ENHANCED MRI OF THE BRAIN: CLINICAL HISTORY: G43.101 Migraine CONTRAST: 10 ML Multihance Multiplanar and multispin-echo imaging of the brain was performed both before and after the administr ation of contrast. The ventricles, basal cisterns and sulci overlying the cerebral convexities are within normal limits. There is no evidence for midline shift or mass effect. Acute intracranial hemorrhage or extra-axial collection is not evident. There are a few scattered nonspecific foci of increased signal within the deep and subcortical white matter of both cerebral hemispheres. Following contrast administration, there is no evidence for pathologic enhancement or enhancing mass. The paranasal mastoid air cells are well-aerated. Mild chronic mucosal thickening of the maxillary et hmoidal and frontal sinuses compatible with chronic sinusitis. IMPRESSION: 1.There are a few scattered nonspecific foci of increased signal within the deep and subcortical whit e matter of both cerebral hemispheres. 2. Mild chronic sinusitis.
== END | disposition home or self-care (01) ==
LOC: RADMRIMAIN 08:53
PROVIDERS: ATTEND Family Medicine
DX: J32.9 Chronic sinusitis, unspecified (principal); R90.82 White matter disease, unspecified
CPT/HCPCS: 70553; A9585

== ENCOUNTER → 2022-08-04 | Outpatient (CLI) | payer MEDICAID ==
[2022-08-04 15:25] LABS: Basophils # (A) 0.03 X 10*3/uL (0.00-0.10); Basophils % (A) 0.3 %; Eosinophils # (A) 0.03 X 10*3/uL (0.04-0.35); Eosinophils % (A) 0.3 %; HCT 39.9 % (37.2-46.3); HGB 12.8 g/dL (12.0-15.0); Immature Grans, Automated 0.2 %; Lymphocytes # (A) 2.82 X 10*3/uL (0.90-5.00); Lymphocytes % (A) 32.2 %; MCH 30.8 pg (27.0-32.0); MCHC 32.1 g/dL (32.0-37.0); MCV 96.1 fL (80.0-97.0); Mean Platelet Volume 9.8 fL (9.5-12.2); Monocytes # (A) 0.47 X 10*3/uL (0.20-1.00); Monocytes % (A) 5.4 %; NRBC Per 100 WBC 0 /100 WBCS (0.0-0.0); Neutrophils # (A) 5.39 X 10*3/uL (1.80-7.70); Neutrophils % (A) 61.6 %; Platelet Count 255 X 10*3/uL (140-440); RBC 4.15 X 10*6/uL (4.10-5.20); RDW 12.3 % (11.5-14.5); WBC 8.76 X 10*3/uL (4.50-10.00)
[2022-08-04 15:52] LABS: ALT 19 U/L (8-44); AST 16 U/L (13-35); African American GFR (CKD) 131.2 (60.0-200.0); Albumin 4.4 g/dL (3.8-4.9); Albumin/Globulin Ratio 1.79 (1.60-3.17); Alkaline Phosphatase 52 U/L (41-126); Blood Urea Nitrogen 14.5 mg/dL (9.0-27.0); C Reactive Protein <0.30 mg/dL (0.00-0.80); Calcium 9.6 mg/dL (8.7-10.3); Carbon Dioxide 25.2 mmol/L (20.0-27.5); Chloride 105 mmol/L (96-109); Globulin 2.5 g/dL (1.6-3.3); Glucose 84 mg/dL (70-110); Lipase 21 U/L (14-63); Non-African American GFR(CKD) 113.2 (60.0-200.0); Potassium 3.7 mmol/L (3.5-5.5); Sodium 141 mmol/L (135-145); Total Protein 6.8 g/dL (6.2-8.2)
[2022-08-04 16:03] LABS: Erythrocyte Sedimentation Rate 11 mm/Hr (0-20)
[2022-08-04 16:39] LABS: Gliadin AB IgA, Deaminated NEGATIVE (NEGATIVE); Gliadin AB IgA, Unit 0.4 U/mL; Gliadin AB IgG, Deaminated NEGATIVE (NEGATIVE); Gliadin AB IgG, Unit <0.4 U/mL
== END | disposition home or self-care (01) ==
LOC: LABWHC1 07:44
PROVIDERS: ATTEND Family Medicine
DX: R10.9 Unspecified abdominal pain (principal)
CPT/HCPCS: 36415; 80053; 83516; 83690; 85025; 85652; 86140

== ENCOUNTER → 2022-08-09 | Outpatient (CLI) | payer MEDICAID ==
--- NOTE | 2022-08-12 12:24 | MR ---
EXAMINATION TYPE: MR pelvis wo/w con DATE OF EXAM: 08/09/2022 COMPARISON: 08/24/2021 CT. MR pelvis 01/06/2021, CT 12/29/2020, MR MRCP 08/06/2018 CLINICAL INDICATION:Female, 36 years old with history of R10.2; Abdomen/Pelvic pain, Hx of migrated g allstones in pelvis (2020), Gallbladder and Appendix removed TECHNIQUE: Triplane multisequence imaging was performed of the pelvis. IV Contrast: 7 cc Gadavist FINDINGS: Reproductive: Vagina: Unremarkable. Uterus: The uterus is retroverted in position at the fundus position in the presacral space. Uterus measures 10.0 x 4.7 x 6.1 cm. The endometrium measuring 8 mm and junctional zone measuring 8 mm are w ithin normal limits. No abnormal postcontrast enhancement. Ovaries: The right ovary measures 3.2 x 1.9 x 3.0 cm. The left ovary measures 2.5 x 2.0 x 2.0 cm. The re are multiple follicles seen bilaterally.. There is a low T2 signal 9 mm left ovarian lesion which demonstrates some intrinsic high T1 signal. No abnormal postcontrast enhancement. Bladder: Unremarkable. Bowel: Unremarkable as visualized. Peritoneum: A small amount of free fluid in the pelvis. Reported dropped gallstones seen on prior imaging in 2020 not definitively visualized. Lymph nodes: No evidence of adenopathy. Vasculature: Unremarkable. Musculoskeletal: Bone marrow signal is within normal signal intensity. Abdominal wall/soft tissues: Unremarkable. IMPRESSION: 1. No evidence for acute process. 2. Suspected Dropped gallstone seen on prior CT pelvis 12/29/2020 is not present on prior CT on 2020 and is not visualized on today's exam. 3. Retroverted uterus with the fundus positioned in the presacral space. 4. Multiple peripheral follicles within the ovaries. 5. Suspected left ovarian hemorrhagic/proteinaceous follicle measuring 9 mm. 6. The endometrium and junctional zone are within normal limits for thickness.
== END | disposition home or self-care (01) ==
LOC: RADMRIMAIN 20:20
PROVIDERS: ATTEND Family Medicine
DX: N85.4 Malposition of uterus (principal); R10.2 Pelvic and perineal pain
CPT/HCPCS: 72197; A9585

== ENCOUNTER → 2023-09-28 | Outpatient (CLI) | payer OTHER ==
--- NOTE | 2023-09-28 08:12 | USB ---
Reason for Exam: Clinical finding. Patient History: Menarche at age 13. First Full-Term at age 22. Paternal grandmother had breast cancer. Risk Values: Na 5 year model risk: 0.3%. NCI Lifetime model risk: 10.1%. Technique: Method: Targeted. Findings: The area of palpable concern of both breasts was scanned. No solid or cystic masses are identified.. Overall Assessment: Negative, BI-RAD 1 Management: Screening Mammogram of both breasts at age 42. A clinical breast exam by your physician is recommended on an annual basis and results should be correlated with mammographic findings. This exam should not preclude additional follow-up of suspicious palpable abnormalities. Results were given to the patient verbally at the time of exam. Electronically signed and approved by: Elgin Castillo M.D. Radiologis
[2023-09-28 09:30] LABS: Basophils % (A) 1 %; Eosinophils # (A) 0.1 k/uL (0-0.7); Eosinophils % (A) 1 %; HCT 40.9 % (34.0-46.0); HGB 12.9 gm/dL (11.4-16.0); Lymphocytes # (A) 1.9 k/uL (1.0-4.8); Lymphocytes % (A) 30 %; MCH 30.3 pg (25.0-35.0); MCHC 31.4 g/dL (31.0-37.0); MCV 96.5 fL (80.0-100.0); Mean Platelet Volume 7.7; Monocytes # (A) 0.3 k/uL (0-1.0); Monocytes % (A) 5 %; Neutrophils # (A) 3.8 k/uL (1.3-7.7); Neutrophils % (A) 62 %; Platelet Count 277 k/uL (150-450); RBC 4.24 m/uL (3.80-5.40); RDW 12.2 % (11.5-15.5); WBC 6.2 k/uL (3.8-10.6)
[2023-09-28 15:31] LABS: ALT 14 U/L (8-44); AST 18 U/L (13-35); Albumin 4.2 g/dL (3.8-4.9); Albumin/Globulin Ratio 1.75 Ratio (1.60-3.17); Alkaline Phosphatase 61 U/L (41-126); BUN/Creat Ratio 15.83 Ratio (12.00-20.00); Blood Urea Nitrogen 9.5 mg/dL (9.0-27.0); Carbon Dioxide 22.6 mmol/L (21.6-31.8); Chloride 106 mmol/L (96-109); Chol/HDL Ratio 3.31 Ratio; Globulin 2.4 g/dL (1.6-3.3); Glucose 89 mg/dL (70-110); LDL Cholesterol,Calculated 98.9 mg/dL (0.0-131.0); Potassium 4.6 mmol/L (3.5-5.5); Sodium 139 mmol/L (135-145); Total Bilirubin 0.3 mg/dL (0.3-1.2); Total Protein 6.6 g/dL (6.2-8.2); VLDL Calculation 14.06 mg/dL (5.00-40.00)
== END | disposition home or self-care (01) ==
LOC: RADMAMWWP 07:26
PROVIDERS: ATTEND Family Medicine
DX: N63.10 Unspecified lump in the right breast, unspecified quadrant (principal); N63.20 Unspecified lump in the left breast, unspecified quadrant; E55.9 Vitamin D deficiency, unspecified; F32.A Depression, unspecified; F90.2 Attention-deficit hyperactivity disorder, combined type; Z13.220 Encounter for screening for lipoid disorders; Z80.3 Family history of malignant neoplasm of breast
CPT/HCPCS: 77062; 77066; 80053; 80061; 82607; 84443; 85025